=== PATIENT | male | born 1970 | race Two or more races ===

== ENCOUNTER 2024-05-31 10:01 | Inpatient (IN) | payer OTHER ==
[~2024-05-31] VITALS: Ht 175.3 cm; Wt 102.3 kg
[2024-05-31] VITALS (9 sets, daily range): BP systolic 127; BP diastolic 65; PULSE 95–110; RESP 18–36; TEMP 97.8; O2SAT 88–97
[2024-05-31] MEDS ORDERED: VANCOMYCIN PER PHARMACY 0 MG IV SCH (10:30)
[2024-05-31 10:38] LABS: Basophils # (auto) 0.1 10 ^3/uL (0-0.2); Basophils % (auto) 0.8 % (0.0-2.0); Eosinophils # (auto) 0 10 ^3/uL (0-0.8); Eosinophils % (auto) 0.3 % (0.0-7.0); Hematocrit 47.4 % (41.0-53.0); Lymphocytes # (auto) 0.8 10 ^3/uL (0.4-5.4); Lymphocytes % (auto) 7.7 % (10.0-50.0); Mean Corpuscular Hemoglobin 31.5 pg (28.0-32.0); Mean Corpuscular Hgb Conc. 33.6 g/dL (32.0-36.0); Mean Corpuscular Volume 93.7 fL (80.0-100.0); Monocytes # (auto) 1.3 10 ^3/uL (0-1.3); Monocytes % (auto) 12.8 % (0.0-12.0); Neutrophils # (auto) 7.7 10 ^3/uL (1.6-8.6); Neutrophils % (auto) 78.4 % (37.0-80.0); Nucleated Red Blood Cells % 0.2 %; Platelet Count (auto) 158 10^3/uL (140-450); Red Blood Cells 5.06 10^6/uL (4.5-5.90); Red Cell Distribution Width 20.4 % (11.8-14.3); White Blood Cell 9.9 10^3/uL (4.4-10.8)
--- NOTE | 2024-05-31 10:39 | ED.PDOC ---
SOB-HPI HPI Comments 54-year-old male with a history of hypertension and currently under treatment for colorectal cancer brought in by brother for evaluation of shortness a breath for the past week. Patient states his symptoms started about 2 days after returning from a vacation in [facility]. He reports productive cough, lethargy, fatigue. He denies fever, chest pain, nausea, vomiting, diaphoresis or edema. Patient's brother who is a respiratory therapist evaluated him at home, and found him to be hypoxic on room air and to have diminished breath sounds and wheezing. The patient is not on home oxygen. He has no history of lung disease or CHF. He was never a smoker. Chief Complaint: Shortness of Breath Time Seen by MD: 10:14 Reviewed notes: Nurses Notes, Medications, Allergies Information Source: Patient, Relative (Sibling) Mode of Arrival: Ambulatory Severity: Moderate Timing: Days Duration: Since onset, Days Context: At Rest PE Risk Factors: None History of: None Prehospital treatment: None Associated Signs and Symptoms: Cough If cough with SOB: Non-Productive Past Medical History PAST MEDICAL HISTORY: Cancer ([place] rectal cancer), DM, HTN Past Medical History (Other): last chemo as of april Surgical History: Denies all surgeries Family History Family History: Reviewed,noncontributory to illness, Unknown Social History Smoker: Non-Smoker Alcohol: Occasionally Drugs: Denies Drug Use Lives In: Home All Other Systems: Reviewed and Negative (Comprehensive systems review obtained and negative except for what is stated in the HPI.) Physical Exam General Appearance: No Apparent Distress, Obese HEENT: PERRL/EOMI Neck: Full Range of Motion, Normal Inspection Respiratory: Decreased Breath Sounds, No Accessory Muscle Use, Respiratory Distress (Tachypneic), Wheezing Cardiovascular: No Edema, No JVD, Regular Rate/Rhythm Breast Exam: Deferred Gastrointestinal: Non Tender, Soft Genitalia: Deferred Pelvic: Deferred Rectal: Deferred Extremities: No calf tenderness, Normal inspection, Normal range of motion, Non-tender, No pedal edema Neurologic: Alert (Oriented x4), Normal Affect, Normal Mood, Other (Ambulatory. No gross focal deficit.) Cerebellar Function: NOT DONE Reflexes: NOT DONE Skin: Dry, Normal Color, Warm Lymphatic: NOT DONE EKG EKG : Comments Sinus tach, rate 131, normal intervals, normal axis, inferior Q-wave, no ST/T changes. Was a procedure done? Was a procedure done?: No Differential Dx Differential Diagnosis: Asthma, Bronchitis, CHF, COPD, Hyperventilation, Myocardial infarction, Pneumonia, Pneumothorax, Pulmonary Embolism, URI, Other (Sepsis, arrhythmia, among others) X-Ray, Labs, Meds, VS Vital Signs Date Time Temp Pulse Resp B/P (MAP) Pulse Ox O2 Delivery O2 Flow Rate FiO2 05/31/24 12:03 101 46 115/73 (87) 95 05/31/24 11:13 110 20 94 05/31/24 11:07 107 24 92 05/31/24 11:07 92 Nasal Cannula* 5 40 05/31/24 11:07 92 Nasal Cannula 5.0 05/31/24 11:00 110 36 92 Nasal Cannula* 5 40 05/31/24 11:00 110 36 102/67 (79) 92 05/31/24 10:30 121 05/31/24 10:29 98.9 122 27 108/57 (74) 88 98.9 05/31/24 10:13 131 05/31/24 10:10 90 Nasal Cannula* 6 44 05/31/24 10:10 79 Room Air* 0 21 05/31/24 10:06 98.5 138 24 96/63 (74) 79 Lab Test 05/31/24 11:15 05/31/24 10:41 05/31/24 10:20 05/31/24 10:13 Range/Units Sodium Level 133 L 136-145 mmol/L Potassium Level 3.8 3.5-5.1 mmol/L Chloride Level 105 98-107 mmol/L Carbon Dioxide Level 21 20-31 mmol/L Anion Gap 7 5-15 Blood Urea Nitrogen 14 9-23 mg/dL Creatinine 1.02 0.700-1.30 mg/dL Glomerular Filtration Rate Calc 88 >90 mL/min BUN/Creatinine Ratio 13.7 10.0-20.0 Serum Glucose 222 H 74-106 mg/dL Calcium Level 7.8 L 8.7-10.4 mg/dL Troponin I High Sensitivity 8 9 </=54 ng/L Blood Gas Specimen Type Arterial Blood Gas Sample Site Right radial Blood Gas Patient Temperature 37.0 Arterial Blood Date Drawn [id number] Arterial Blood pH 7.436 7.350-7.450 Arterial Blood Partial Pressure CO2 28.5 L 35.0-48.0 mmHg Arterial Blood Partial Pressure O2 54.6 *L 83.0-108.0 mmHg Arterial Blood HCO3 18.7 L 21.0-28.0 mmol/L Arterial Blood Oxygen Saturation 86.8 L 94.0-98.0 % Arterial Blood Base Excess -3.8 L -2.0-3.0 mmol/L Arterial Blood Oxyhemoglobin 85.5 L 94.0-98.0 % Arterial Blood Carboxyhemoglobin 1.0 0.5-1.5 % Arterial Blood Methemoglobin 0.5 0.0-1.5 % Levi Test Yes Blood Gas Total Hemoglobin 16.10 13.5-17.5 g/dL Blood Gas Liter Flow 5.00 Blood Gas Modality Nasal cannula FiO2 % 40.0 Blood Gas Critical Value Read Back Yes Blood Gas Notified Whom sohail Uribe md Blood Gas Notified Time [id number] Blood Gas Notified By White Blood Count 9.9 4.4-10.8 10^3/uL Red Blood Count 5.06 4.5-5.90 10^6/uL Hemoglobin 16.0 13.5-17.5 g/dL Hematocrit 47.4 41.0-53.0 % Mean Corpuscular Volume 93.7 80.0-100.0 fL Mean Corpuscular Hemoglobin 31.5 28.0-32.0 pg Mean Corpuscular Hemoglobin Concent 33.6 32.0-36.0 g/dL Red Cell Distribution Width 20.4 H 11.8-14.3 % Platelet Count 158 140-450 10^3/uL Mean Platelet Volume 8.4 6.9-10.8 fL Neutrophils (%) (Auto) 78.4 37.0-80.0 % Lymphocytes (%) (Auto) 7.7 L 10.0-50.0 % Monocytes (%) (Auto) 12.8 H 0.0-12.0 % Eosinophils (%) (Auto) 0.3 0.0-7.0 % Basophils (%) (Auto) 0.8 0.0-2.0 % Neutrophils # (Auto) 7.7 1.6-8.6 10 ^3/uL Lymphocytes # (Auto) 0.8 0.4-5.4 10 ^3/uL Monocytes # (Auto) 1.3 0-1.3 10 ^3/uL Eosinophils # (Auto) 0 0-0.8 10 ^3/uL Basophils # (Auto) 0.1 0-0.2 10 ^3/uL Nucleated Red Blood Cells 0.2 % Prothrombin Time 13.0 H 9.3-11.8 sec Prothrombin Time INR 1.25 H 0.9-1.15 Activated Partial Thromboplast Time 32.3 24.5-34.5 SEC D-Dimer, Quantitative 1.44 H 0.0-0.49 mg/L FEU Lactic Acid Level 1.9 0.4-2.0 mmol/L B-Type Natriuretic Peptide 3.62 0-100 pg/mL Influenza Type A Antigen Negative Negative Influenza Type B Antigen Negative Negative SARS-CoV-2 Antigen (Rapid) Positive *A NEGATIVE Current Medications Medications (Trade) Dose Ordered Sig/Neil Route Start Time Stop Time Status Last Admin Ipratropium Tobyhanna (Atrovent Medneb) 0.5 mg ONCE ONCE NEB 05/31/24 10:30 05/31/24 10:31 DC 05/31/24 11:07 Piperacillin Sod/ Tazobactam Sod 100 ml @ 100 mls/hr ONCE ONCE IV 05/31/24 10:30 05/31/24 11:29 DC 05/31/24 10:43 Sodium Chloride 3,000 ml @ 1,000 mls/hr Q3H ONCE IV 05/31/24 10:30 05/31/24 13:29 05/31/24 10:45 Sodium Chloride 2,000 ml @ 1,000 mls/hr Q2H ONCE IV 05/31/24 12:00 05/31/24 13:59 05/31/24 12:05 PROCEDURE(s): CXRP - CHEST PORTABLE REASON: sob ORDER NUMBER(s): [id number], ACCESSION NUMBER(s): [id number] EXAM: XY CHEST PORTABLE Indication: sob Technique: Single frontal view of the chest was obtained Comparison: None FINDINGS: Lines and Tubes: Right chest port tip projects over the superior vena cava. Lungs: Diffuse interstitial opacities. Pleura: No effusion. No pneumothorax. Cardiomediastinal contours: Unremarkable Bones: No acute osseous abnormality. IMPRESSION: Diffuse interstitial opacities. X-Ray, Labs, Meds, VS Comment 54-year-old male with a history of hypertension and currently under treatment for colorectal cancer brought in by brother for evaluation of shortness a breath for the past week. Vitals remarkable for oxygen saturation 91% on 6 L nasal cannula, blood pressure Exam remarkable for diminished breath sounds and scattered wheezes, mild tachypnea Rhythm strip independently interpreted by me: Sinus tach, rate 131, no ectopy. Chest x-ray diffuse interstitial opacities CT angio chest pending CBC unremarkable, metabolic panel remarkable for sodium 133, glucose 222, BNP normal, troponin negative, lactic 1.9, D dimer 1.44 influenza negative, COVID positive Patient treated with the following in the ED: 3 L 0.9 normal saline IV bolus, Xopenex 1.25 mg/Atrovent 0.5 mg nebulized, Zosyn 4.5 g IV, vancomycin IV per pharmacy, dexamethasone 10 mg IV On re-evaluation, patient states shortness a breath has improved, he is resting comfortably with stable vitals and oxygen saturation of 93% on nasal cannula oxygen. Plan is to admit the patient for IV antibiotics, remdesivir and respiratory support as needed. Time of 1ST Reevaluation: 10:44 Reevaluation 1ST: Unchanged Patient Education/Counseling: Diagnosis, Treatment, Prognosis Family Education/Counseling: Diagnosis, Treatment, Prognosis Sepsis Sepsis Reasesment Focused Exam Sepsis focused exam: focus exam completed (1232 capillary refill less than 2 seconds, vitals stable) Departure 1 Departure Time of Disposition: 12:32 Impression: Primary Impression: Pneumonia due to COVID-19 virus Additional Impression: Acute respiratory failure Qualified Codes: J96.00 - Acute respiratory failure, unspecified whether with hypoxia or hypercapnia Disposition: ADMITTED INPATIENT Admit to: Tele Condition: Guarded Critical Care Note Critical Care Time?: Yes (45 min-critical care time only) Critical care comment: Critical care time including multiple bedside re-evaluations, review of lab and imaging studies, and discussion of the case with the admitting provider. Patient is high risk for hemodynamic and/or respiratory decompensation. Stability Stability form required: No Heart Score Heart Score: Heart Score Response (Comments) Value History N/A 0 EKG N/A 0 Age N/A 0 Risk Factors N/A 0 Troponin N/A 0 Total 0 I personally scribed for ERICKSON URIBE MD ([email or web address]) on 05/31/24 at 10:43. Electronically submitted by Abraham Kate ([email or web address]). ERICKSON URIBE MD May 31, 2024 10:39
[2024-05-31] MEDS: PIPERACILLIN-TAZO 4.5GM 100 ML IV ONE (10:43)
[2024-05-31] MEDS: SODIUM CHLORIDE 0.9% 3,000 ML IV ONE (10:45)
--- NOTE | 2024-05-31 10:48 | DVH ---
EXAM: XY CHEST PORTABLE Indication: sob Technique: Single frontal view of the chest was obtained Comparison: None FINDINGS: Lines and Tubes: Right chest port tip projects over the superior vena cava. Lungs: Diffuse interstitial opacities. Pleura: No effusion. No pneumothorax. Cardiomediastinal contours: Unremarkable Bones: No acute osseous abnormality. IMPRESSION: Diffuse interstitial opacities.
[2024-05-31 10:57] LABS: INR 1.25 (0.9-1.15); Partial Thromboplastin Time 32.3 SEC (24.5-34.5)
[2024-05-31] MEDS: IPRATROPIUM BROM 0.5 MG/2.5ML INH SOL NEB ONE (11:07)
[2024-05-31 11:20] LABS: COVID19 ANTIGEN SOFIA FIA POSITIVE (NEGATIVE); Rapid Influenza A Negative (Negative); Rapid Influenza B Negative (Negative)
[2024-05-31 11:39] LABS: Base Excess -3.8 mmol/L (-2.0-3.0)
[2024-05-31] MEDS: SODIUM CHLORIDE 0.9% 2,000 ML IV ONE (12:05)
[2024-05-31] MEDS ORDERED: VANCOMYCIN 1GM/250ML KIT 250 ML IV ONE (12:15)
[2024-05-31 12:16] LABS: Calcium 7.8 mg/dL (8.7-10.4); Carbon Dioxide 21 mmol/L (20-31); Glucose 222 mg/dL (74-106)
[2024-05-31 12:18] LABS: BUN/Creatinine Ratio 13.7 (10.0-20.0)
[2024-05-31 12:21] LABS: Anion Gap 7 (5-15); Chloride 105 mmol/L (98-107); Sodium 133 mmol/L (136-145)
[2024-05-31 12:22] LABS: Blood Urea Nitrogen 14 mg/dL (9-23); Potassium 3.8 mmol/L (3.5-5.1)
[2024-05-31] MEDS: LEVALBUTEROL HCL 1.25 MG/3 ML NEB NEB SCH (13:40)
[2024-05-31] MEDS ORDERED: DEXTROSE (50%) 50ML SYRG IV PRN (13:45)
[2024-05-31] MEDS ORDERED: ONDANSETRON HCL 4 MG/2 ML VIAL IV PRN (13:45)
[2024-05-31] MEDS ORDERED: REMDESIVIR PER PHARMACY 0 ML IV SCH (13:45)
[2024-05-31] MEDS ORDERED: HYDROcodone-ACET 5/325MG TAB PO PRN (13:45)
--- NOTE | 2024-05-31 13:58 | DVHHP2 ---
History of Present Illness Reason for Visit: SOB History of Present Illness Jeremy Lin is a 54-year-old male with past medical history of hypertension, diabetes type 2, colorectal cancer on chemo once every 3 weeks last was on 05/23/2024, and colon resection who presents to the ED with shortness of breath with productive tannish cough, lethargy, and fatigue x1 week. Patient reports that he was just in [place] and thinks that he possibly picked something up from there. Patient reports that he does not use home oxygen but currently upon examination he is on 5 L nasal cannula. Patient denies chest pain, abdominal pain, nausea, vomiting, diarrhea, fever, chills, lightheadedness, and dizziness. Cardiovascular: HTN Endocrine: Diabetes Past Medical History Colorectal cancer on chemo Past Surgical History: Other (Colon resection) Family History: Cancer, DM, Hypertension, Other (Mom with hypertension diabetes dad with prostate cancer) Smoke: No ALCOHOL: occassional Lives: with Family Domestic Violence: Neg Review of Systems Constitutional: Yes: Other (Fatigue and lethargy) Respiratory: Cough, Shortness of breath, Sputum Allergies: Coded Allergies: NO KNOWN ALLERGIES (Unverified , 05/31/24) Medications Current Medications Medications Dose Ordered Sig/Neil Route Start Time Stop Time Status Last Admin Dose Admin Levalbuterol HCl 1.25 mg Q6HR NEB 05/31/24 12:00 05/31/24 13:40 1.25 MG Vancomycin HCl 0 ml @ 0 mls/hr UD IV 05/31/24 10:30 Exam Vital Signs Vital Signs Date Time Temp Pulse Resp B/P (MAP) Pulse Ox O2 Delivery O2 Flow Rate FiO2 05/31/24 12:03 101 46 115/73 (87) 95 05/31/24 11:07 Nasal Cannula* 5 40 05/31/24 10:29 98.9 98.9 General Appearance: Alert, Oriented X3, Cooperative, No acute distress HEENT: Atraumatic, PERRLA, EOMI Respiratory: Normal air movement Cardiovascular: Normal S1, Normal S2, No murmurs Abdominal: Soft Neuro: Normal speech, Strength at 5/5 X4 ext, Normal tone, Sensation intact Psych/Mental Status: Mental status NL, Mood NL Labs/Xrays Labs Test 05/31/24 11:15 05/31/24 10:41 05/31/24 10:20 05/31/24 10:13 Range/Units Sodium Level 133 L 136-145 mmol/L Potassium Level 3.8 3.5-5.1 mmol/L Chloride Level 105 98-107 mmol/L Carbon Dioxide Level 21 20-31 mmol/L Anion Gap 7 5-15 Blood Urea Nitrogen 14 9-23 mg/dL Creatinine 1.02 0.700-1.30 mg/dL Glomerular Filtration Rate Calc 88 >90 mL/min BUN/Creatinine Ratio 13.7 10.0-20.0 Serum Glucose 222 H 74-106 mg/dL Calcium Level 7.8 L 8.7-10.4 mg/dL Troponin I High Sensitivity 8 </=54 ng/L Blood Gas Specimen Type Arterial Blood Gas Sample Site Right radial Blood Gas Patient Temperature 37.0 Arterial Blood Date Drawn [id number] Arterial Blood pH 7.436 7.350-7.450 Arterial Blood Partial Pressure CO2 28.5 L 35.0-48.0 mmHg Arterial Blood Partial Pressure O2 54.6 *L 83.0-108.0 mmHg Arterial Blood HCO3 18.7 L 21.0-28.0 mmol/L Arterial Blood Oxygen Saturation 86.8 L 94.0-98.0 % Arterial Blood Base Excess -3.8 L -2.0-3.0 mmol/L Arterial Blood Oxyhemoglobin 85.5 L 94.0-98.0 % Arterial Blood Carboxyhemoglobin 1.0 0.5-1.5 % Arterial Blood Methemoglobin 0.5 0.0-1.5 % Levi Test Yes Blood Gas Total Hemoglobin 16.10 13.5-17.5 g/dL Blood Gas Liter Flow 5.00 Blood Gas Modality Nasal cannula FiO2 % 40.0 Blood Gas Critical Value Read Back Yes Blood Gas Notified Whom sohail Palomares md Blood Gas Notified Time [id number] Blood Gas Notified By White Blood Count 9.9 4.4-10.8 10^3/uL Red Blood Count 5.06 4.5-5.90 10^6/uL Hemoglobin 16.0 13.5-17.5 g/dL Hematocrit 47.4 41.0-53.0 % Mean Corpuscular Volume 93.7 80.0-100.0 fL Mean Corpuscular Hemoglobin 31.5 28.0-32.0 pg Mean Corpuscular Hemoglobin Concent 33.6 32.0-36.0 g/dL Red Cell Distribution Width 20.4 H 11.8-14.3 % Platelet Count 158 140-450 10^3/uL Mean Platelet Volume 8.4 6.9-10.8 fL Neutrophils (%) (Auto) 78.4 37.0-80.0 % Lymphocytes (%) (Auto) 7.7 L 10.0-50.0 % Monocytes (%) (Auto) 12.8 H 0.0-12.0 % Eosinophils (%) (Auto) 0.3 0.0-7.0 % Basophils (%) (Auto) 0.8 0.0-2.0 % Neutrophils # (Auto) 7.7 1.6-8.6 10 ^3/uL Lymphocytes # (Auto) 0.8 0.4-5.4 10 ^3/uL Monocytes # (Auto) 1.3 0-1.3 10 ^3/uL Eosinophils # (Auto) 0 0-0.8 10 ^3/uL Basophils # (Auto) 0.1 0-0.2 10 ^3/uL Nucleated Red Blood Cells 0.2 % Prothrombin Time 13.0 H 9.3-11.8 sec Prothrombin Time INR 1.25 H 0.9-1.15 Activated Partial Thromboplast Time 32.3 24.5-34.5 SEC D-Dimer, Quantitative 1.44 H 0.0-0.49 mg/L FEU Lactic Acid Level 1.9 0.4-2.0 mmol/L B-Type Natriuretic Peptide 3.62 0-100 pg/mL Influenza Type A Antigen Negative Negative Influenza Type B Antigen Negative Negative SARS-CoV-2 Antigen (Rapid) Positive *A NEGATIVE EXAM: XY CHEST PORTABLE Indication: sob Technique: Single frontal view of the chest was obtained Comparison: None FINDINGS: Lines and Tubes: Right chest port tip projects over the superior vena cava. Lungs: Diffuse interstitial opacities. Pleura: No effusion. No pneumothorax. Cardiomediastinal contours: Unremarkable Bones: No acute osseous abnormality. IMPRESSION: Diffuse interstitial opacities. Assessment/Plan Assessment/Plan Assessment COVID positive Acute respiratory failure ?PNA Hyponatremia Diabetes type 2 uncontrolled ETOH abuse History of hypertension History of colorectal cancer on chemo History of colon resection Plan Admit to [facility] Supportive oxygen Remdesivir IV antibiotics-ceftriaxone ABG Chest x-ray Vancomycin and Zosyn started in ED NS 5 L given in ED Xopenex not show Decadron given ED Troponin negative x2 Blood cultures Lactic EKG UA D-dimer PT/PTT BNP Albuterol treatment inhaler IV steroids Diet Antiemetics Pain management Home medications reconciled Discussed plan of care with patient and nurse SCDs Capecitabine and Vectibix chemo med due in 2 weeks Plan discussed with: Patient My Orders Orders - ANN ASCENCIO Procedure Category Date Status Time Remdesivir Per PHA 05/31/24 Verified Pharmacy 13:45 Ceftriaxone Ivpb PHA 06/01/24 Verified Rocephin 09:00 Albuterol Inhaler PHA 05/31/24 Verified (Ventolin Hfa) 14:00 Admit ADMIT 05/31/24 Verified 13:42 Allergies [place] 05/31/24 Verified 13:42 Hydrocodone-Acet PHA 05/31/24 Verified 5/325mg Tab ([place] 13:45 Ondansetron Hcl PHA 05/31/24 Verified (Zofran) 13:45 Complete Blood Count LAB 06/01/24 Verified 04:00 Comprehensive LAB 06/01/24 Verified Metabolic Panel 04:00 Cardiac DIET 05/31/24 Verified Diet-2gna,Lofat,Lochol Dinner Acetaminophen Tablet PHA 05/31/24 Verified (Tylenol Tablet) 13:45 Glucose Blood PHA 05/31/24 Verified (Accu-Chek Comfort 17:00 Mild Sliding Scale PHA 05/31/24 Verified 17:00 Dextrose 50% Syringe PHA 05/31/24 Verified 13:45 Hemoglobin A1c LAB 05/31/24 Verified 13:42 Date of Service: May 31, 2024 Billing Provider: ANN ASCENCIO Common Visit Codes: [id number] INP/OBS CARE (HIGH) ANN ASCENCIO May 31, 2024 13:58
[2024-05-31] MEDS ORDERED: VANCOMYCIN 1GM/250ML KIT 250 ML IV SCH (14:30)
[2024-05-31] MEDS ORDERED: AMLO1TAB23 (15:29)
[2024-05-31] MEDS ORDERED: LISI20TA56 (15:29)
[2024-05-31] MEDS: DexAMETHasone SOD PHOS 10MG/1ML VIAL INJ IV ONE (15:45)
[2024-05-31] MEDS: REMDESIVIR 200mg in NS 210mL LOADING DOSE ADULT IV ONE (15:46)
[2024-05-31] MEDS: ACCU-CHEK COMFORT CURVE STRIP VI SCH (18:15)
[2024-05-31] MEDS: InsuLIN REG 1unit/0.01ml Soln (100units/ml) SC SCH (18:17)
--- NOTE | 2024-05-31 19:12 | DVH ---
EXAM: CT Angiography Chest With Intravenous Contrast CLINICAL INDICATION: sob hypoxia hi dimer r/o PE TECHNIQUE: Axial computed tomographic angiography images of the chest with intravenous contrast. Th is CT exam was performed using one or more of the following dose reduction techniques: automated exp osure control, adjustment of the mA and/or kV according to patient size, and/or use of iterative heriberto nstruction technique. MIP reconstructed images were created and reviewed. CONTRAST: RADIATION DOSE: CTDIvol = 26.68 mGy, DLP = 924.74 mGy-cm COMPARISON: None FINDINGS: PULMONARY ARTERIES: See below. AORTA: Suboptimal exam secondary to phase of scan. Contrast is in the aorta. No large filling defe ct in the main central pulmonary arteries to suggest pulmonary embolus. However, the segmental and s ubsegmental branches evaluation is limited. LUNGS AND PLEURAL SPACES: Scattered ground-glass attenuation partial consolidation of both lungs, l ikely multifocal pneumonia. No significant effusion. HEART: Unremarkable. No cardiomegaly. No significant pericardial effusion. No evidence of RV dys function. BONES/JOINTS: No acute fracture. No dislocation. SOFT TISSUES: Unremarkable. LYMPH NODES: Unremarkable. No enlarged lymph nodes. OTHER FINDINGS: . IMPRESSION: 1. Scattered ground-glass attenuation partial consolidation of both lungs, likely multifocal pneumon ia. 2. Suboptimal exam secondary to phase of scan. Contrast is in the aorta. No large filling defect in the main central pulmonary arteries to suggest pulmonary embolus. However, the segmental and subseg mental branches evaluation is limited.
[2024-05-31] MEDS: ALBUTEROL SULF HFA 90MCG INH 200DOSE IN SCH (19:50)
[2024-05-31] MEDS: VANCOMYCIN 1GM/250ML KIT 250 ML IV SCH (22:15)
[2024-05-31] MEDS: methylPREDNISolone SOD SUCC 40 MG/ML VL IV SCH (22:22)
[2024-06-01] VITALS (13 sets, daily range): BP systolic 101–116; BP diastolic 63–77; PULSE 79–92; RESP 16–21; TEMP 97.1–98; O2SAT 90–96
[2024-06-01] MEDS: ACETAMINOPHEN 325 MG TAB PO PRN (06:45)
[2024-06-01 06:51] LABS: Basophils # (auto) 0 10 ^3/uL (0-0.2); Basophils % (auto) 0.1 % (0.0-2.0); Eosinophils # (auto) 0 10 ^3/uL (0-0.8); Hematocrit 43.4 % (41.0-53.0); Hemoglobin 14.6 g/dL (13.5-17.5); Lymphocytes # (auto) 0.4 10 ^3/uL (0.4-5.4); Mean Corpuscular Hemoglobin 32.2 pg (28.0-32.0); Mean Corpuscular Hgb Conc. 33.6 g/dL (32.0-36.0); Mean Corpuscular Volume 95.6 fL (80.0-100.0); Monocytes # (auto) 0.1 10 ^3/uL (0-1.3); Monocytes % (auto) 2.1 % (0.0-12.0); Neutrophils # (auto) 4.1 10 ^3/uL (1.6-8.6); Neutrophils % (auto) 88.8 % (37.0-80.0); Platelet Count (auto) 140 10^3/uL (140-450); Red Blood Cells 4.54 10^6/uL (4.5-5.90); Red Cell Distribution Width 19.6 % (11.8-14.3); White Blood Cell 4.6 10^3/uL (4.4-10.8)
[2024-06-01 07:18] LABS: Alanine Aminotransferase 30 U/L (7-40); Albumin 3.6 g/dL (3.2-4.8); Anion Gap 10 (5-15); Aspartate Aminotransferase 38 U/L (13-40); Blood Urea Nitrogen 17 mg/dL (9-23); Potassium 4.7 mmol/L (3.5-5.1); Sodium 136 mmol/L (136-145); Total Protein 6.6 g/dL (5.7-8.2)
[2024-06-01 07:19] LABS: Bilirubin, Total 0.7 mg/dL (0.2-1.0)
[2024-06-01 07:29] LABS: Alkaline Phosphatase 117 U/L (46-116); Calcium 8.4 mg/dL (8.7-10.4); Carbon Dioxide 18 mmol/L (20-31); Chloride 108 mmol/L (98-107); Glucose 181 mg/dL (74-106)
[2024-06-01] MEDS: cefTRIAXone 1GM/50ML D5W 50 ML IV SCH (08:43)
[2024-06-01] MEDS: VANCOMYCIN 1.25GM/250ML 250 ML IV SCH (10:32)
[2024-06-01] MEDS: REMDESIVIR 100mg in NS 230mL (3 DAY REGIMEN) IV SCH (15:03)
[2024-06-02] VITALS (11 sets, daily range): BP systolic 101–128; BP diastolic 61–74; PULSE 60–95; RESP 16–20; TEMP 97.4–97.6; O2SAT 91–97
[2024-06-02] MEDS: IOHEXOL 350 MG/ML 100ML IJ ONE (03:13)
--- NOTE | 2024-06-02 04:34 | ECG ---
[facility] Test Date: 2024-05-31 Test Time: 10:13:44 Pat Name: STEPHANIE MOORE Department: er Room: 0201 A Gender: M Bindery Technician: PAL : 1970 Requested By: ERICKSON MEDINA Order Number: [id number] Reading MD: Delonte Vicente Measurements Intervals [place] Rate: 131 P: 70 NV: 133 QRS: 26 QRSD: 101 T: 51 QT: 303 QTc: 448 Interpretive Statements Sinus tachycardia Electronically Signed On 06-05-2024 16:34:14 PDT by Delonte Vicente Please click the below link to view image of tracing.
[2024-06-02 06:05] LABS: Basophils # (auto) 0 10 ^3/uL (0-0.2); Eosinophils # (auto) 0 10 ^3/uL (0-0.8); Hematocrit 42.6 % (41.0-53.0); Hemoglobin 14.5 g/dL (13.5-17.5); Lymphocytes # (auto) 0.4 10 ^3/uL (0.4-5.4); Lymphocytes % (auto) 4.6 % (10.0-50.0); Mean Corpuscular Hemoglobin 32.3 pg (28.0-32.0); Monocytes # (auto) 0.4 10 ^3/uL (0-1.3); Monocytes % (auto) 4.4 % (0.0-12.0); Neutrophils # (auto) 8.9 10 ^3/uL (1.6-8.6); Nucleated Red Blood Cells % 0.1 %; Platelet Count (auto) 169 10^3/uL (140-450); Red Blood Cells 4.48 10^6/uL (4.5-5.90); Red Cell Distribution Width 19.9 % (11.8-14.3); White Blood Cell 9.8 10^3/uL (4.4-10.8)
--- NOTE | 2024-06-02 10:01 | DVHPN2 ---
Progress Note - Dictate Date Seen: Jun 02, 2024 vital signs Vital Sign Date Time Temp Pulse Resp B/P (MAP) Pulse Ox O2 Delivery O2 Flow Rate FiO2 06/02/24 08:46 97.4 91 16 111/62 (78) 92 97.4 06/02/24 08:00 Oxymizer 4 N/A Total Intake and Output 06/01/24 06/01/24 06/02/24 15:00 23:00 07:00 Intake Total 300 ml 650 ml 750 ml Output Total 850 ml 900 ml Balance 300 ml -200 ml -150 ml medications Current Medications Medications Dose Ordered Sig/Neil Route Start Time Stop Time Status Last Admin Dose Admin Vancomycin HCl 0 ml @ 0 mls/hr UD IV 05/31/24 10:30 Remdesivir 0 ml @ 0 mls/hr PER PHARMACY IV 05/31/24 13:45 06/02/24 13:46 Ceftriaxone Sodium 50 ml @ 100 mls/hr DAILY@09 IV 06/01/24 09:00 06/01/24 08:43 100 MLS/HR Albuterol 90 mcg TID IN 05/31/24 14:00 06/02/24 07:23 90 MCG Acetaminophen/ Hydrocodone Bitart 1 tab Q4HP PRN PO 05/31/24 13:45 Ondansetron HCl 4 mg Q4HP PRN IV 05/31/24 13:45 Acetaminophen 650 mg Q6HP PRN PO 05/31/24 13:45 06/01/24 06:45 650 MG Diagnostic Test (Pha) 1 strip ACHS 05/31/24 17:00 06/02/24 06:30 1 STRIP Insulin Human Regular ACHS SC 05/31/24 17:00 06/02/24 06:29 4 UNITS Dextrose 50 ml UD PRN IV 05/31/24 13:45 Remdesivir 100 mg/ Sodium Chloride 250 ml @ 250 mls/hr DAILY@1500 IV 06/01/24 15:00 06/02/24 15:59 06/01/24 15:03 250 MLS/HR Vancomycin HCl 250 ml @ 250 mls/hr Q1H IV 05/31/24 14:30 05/31/24 16:29 Cancel Methylprednisolone Sodium Succinate 40 mg Q8HR IV 05/31/24 22:00 06/02/24 06:29 40 MG Vancomycin HCl 250 ml @ 200 mls/hr Q12H IV 06/01/24 10:00 06/01/24 22:02 200 MLS/HR objective General Appearance: alert, no distress HEENT: EOMI, PERRLA, normal external inspect of ears, no icterus, no nasal drainage Neck: no carotid bruit, no jugular venous distention (JVD), no lymphadenopathy Chest: normal thorax Respiratory: clear to auscultation, normal air movement Cardiovascular: regular rate and rhythm, no diastolic murmur, no jugular venous distention (JVD), no rub, no systolic murmur Abdominal: soft, no hepatomegaly, no mass, no splenomegaly, no tenderness Genitourinary: grossly normal external Musculoskeletal: no joint tenderness, no swelling Extremities: normal pulses, no calf tenderness, no clubbing, no cyanosis, no edema Skin: no bruising, no jaundice, no rash Neurological: alert, No focal deficit laboratory and microbiology Laboratory Tests 06/02/24 05:47 06/01/24 05:55 Test 06/01/24 05:55 Range/Units Serum Glucose 181 H 74-106 mg/dL Problem List 1. COVID positive Monitor , COVID trial medications 2. Acute respiratory failure Monitor, albuterol inhaler 3. PNA Monitor, IV abx 4. Hyponatremia Monitor, daily labs 5. Diabetes type 2 uncontrolled Monitor, insulin ss 6. ETOH abuse Monitor 7. History of hypertension Monitor, medications 8. History of colorectal cancer on chemo Monitor 9. History of colon resection Monitor Plan discussed with: Patient, Other JEFE CHOU NP Jun 02, 2024 10:00
--- NOTE | 2024-06-02 10:01 | DVHPN2 ---
Progress Note - Dictate Date Seen: Jun 02, 2024 Medical Necessity Reason Pt with a Central, PICC or Fol: No vital signs Vital Sign Date Time Temp Pulse Resp B/P (MAP) Pulse Ox O2 Delivery O2 Flow Rate FiO2 06/02/24 08:46 97.4 91 16 111/62 (78) 92 97.4 06/02/24 08:00 Oxymizer 4 N/A Total Intake and Output 06/01/24 06/01/24 06/02/24 15:00 23:00 07:00 Intake Total 300 ml 650 ml 750 ml Output Total 850 ml 900 ml Balance 300 ml -200 ml -150 ml medications Current Medications Medications Dose Ordered Sig/Neil Route Start Time Stop Time Status Last Admin Dose Admin Vancomycin HCl 0 ml @ 0 mls/hr UD IV 05/31/24 10:30 Remdesivir 0 ml @ 0 mls/hr PER PHARMACY IV 05/31/24 13:45 06/02/24 13:46 Ceftriaxone Sodium 50 ml @ 100 mls/hr DAILY@09 IV 06/01/24 09:00 06/01/24 08:43 100 MLS/HR Albuterol 90 mcg TID IN 05/31/24 14:00 06/02/24 07:23 90 MCG Acetaminophen/ Hydrocodone Bitart 1 tab Q4HP PRN PO 05/31/24 13:45 Ondansetron HCl 4 mg Q4HP PRN IV 05/31/24 13:45 Acetaminophen 650 mg Q6HP PRN PO 05/31/24 13:45 06/01/24 06:45 650 MG Diagnostic Test (Pha) 1 strip ACHS 05/31/24 17:00 06/02/24 06:30 1 STRIP Insulin Human Regular ACHS SC 05/31/24 17:00 06/02/24 06:29 4 UNITS Dextrose 50 ml UD PRN IV 05/31/24 13:45 Remdesivir 100 mg/ Sodium Chloride 250 ml @ 250 mls/hr DAILY@1500 IV 06/01/24 15:00 06/02/24 15:59 06/01/24 15:03 250 MLS/HR Vancomycin HCl 250 ml @ 250 mls/hr Q1H IV 05/31/24 14:30 05/31/24 16:29 Cancel Methylprednisolone Sodium Succinate 40 mg Q8HR IV 05/31/24 22:00 06/02/24 06:29 40 MG Vancomycin HCl 250 ml @ 200 mls/hr Q12H IV 06/01/24 10:00 06/01/24 22:02 200 MLS/HR objective General Appearance: alert, no distress HEENT: EOMI, PERRLA, normal external inspect of ears, no icterus, no nasal drainage Neck: no carotid bruit, no jugular venous distention (JVD), no lymphadenopathy Chest: normal thorax Respiratory: clear to auscultation, normal air movement Cardiovascular: regular rate and rhythm, no diastolic murmur, no jugular venous distention (JVD), no rub, no systolic murmur Abdominal: soft, no hepatomegaly, no mass, no splenomegaly, no tenderness Genitourinary: grossly normal external Musculoskeletal: no joint tenderness, no swelling Extremities: normal pulses, no calf tenderness, no clubbing, no cyanosis, no edema Skin: no bruising, no jaundice, no rash Neurological: alert, No focal deficit laboratory and microbiology Laboratory Tests 06/02/24 05:47 06/01/24 05:55 Test 06/01/24 05:55 Range/Units Serum Glucose 181 H 74-106 mg/dL Problem List 1. COVID positive Monitor 2. Acute respiratory failure Monitor 3. ?PNA Monitor 4. Hyponatremia Monitor 5. Diabetes type 2 uncontrolled Monitor 6. ETOH abuse Monitor 7. History of hypertension Monitor 8. History of colorectal cancer on chemo Monitor 9. History of colon resection Monitor Assessment/Plan Subjective: Patient is awake and alert. Objective: Patient has Covid pneumonia. Currently on four liters oxymizer. Patient is still having some coughs and is short of breath. Patient was admitted for acute hypoxic respiratory failure and Covid pneumonia. Patient was started on remdesivir and IV antibiotics for a possible secondary bacterial infection. Plan: Continue albuterol inhaler for shortness of breath. Continue antivirals and antibiotics. Start Covid trial medications and vitamins. Monitor daily labs and renal function. Plan discussed with: Patient, Other JEFE CHOU NP Jun 02, 2024 10:01
[2024-06-02] MEDS: ZINC SULFATE 220mg CAP or TAB PO SCH (11:03)
[2024-06-02] MEDS: CHOLECALCIFEROL (VITD3) 1,000UNIT=25mCg TAB PO SCH (11:03)
[2024-06-02] MEDS: FAMOTIDINE (10MG/ML) 2ML VL IV SCH (11:03)
[2024-06-02] MEDS: ASCORBIC ACID 500 MG TAB PO SCH (11:03)
[2024-06-02] MEDS: INSULIN LANTUS (GLARGINE) 1 /0.01ml (100units/ml) SC SCH (11:12)
[2024-06-02] MEDS: InsuLIN REG 1unit/0.01ml Soln (100units/ml) SC SCH ×2 (11:12→22:17)
--- NOTE | 2024-06-02 12:25 | DVHINCON2 ---
Date of service: Jun 01, 2024 Referring Physician Johan DANIELSON Reason for Consultation Acute hypoxic respiratory failure, COVID-19 History of Present Illness A 54-year-old man with past medical history of hypertension, diabetes type 2, and colorectal cancer, on chemo once every 3 weeks (last on 05/23/2024) s/p colon resection, who presented to ED on 05/31/24 with c/o shortness of breath with productive tannish cough, lethargy, and fatigue x1 week. Patient reported that he was just in [place] and possibly picked something up from there. Patient reported his brother who is a respiratory therapist evaluated him at home and found him to be hypoxic on room air and to have diminished breath sounds and wheezing. Patient is not on home oxygen. He denied chest pain, abdominal pain, N/V/D, or other acute complaints. Patient was admitted for further care and pulmonary consultation is requested for evaluation and management of acute hypoxic respiratory failure and COVID-19. Review of Systems: 14-point review of systems negative unless otherwise noted above. Past Medical History: Hypertension, diabetes type 2, and colorectal cancer, on chemo once every 3 weeks (last on 05/23/2024) s/p colon resection Past Surgical History: Colon resection Medications: Reviewed. Allergies: No known drug allergies. Family History: DM, hypertension, [place], renal failure, colorectal cancer, prostate cancer Social History: Nonsmoker. Occasional alcohol use. No illicit drug use. Family History: Colorectal cancer G8 MOTHER Diabetes mellitus G8 MOTHER FH: heart attack G8 MOTHER FH: renal failure G8 FATHER Hypertension G8 MOTHER G8 FATHER Allergies: Coded Allergies: NO KNOWN ALLERGIES (Unverified , 05/31/24) Home Meds Reported Medications Lisinopril (Lisinopril) 20 Mg Tab, 1 DAILY 05/31/24 Amlodipine Besylate (Amlodipine Besylate) 10 Mg Tab, 1 DAILY 05/31/24 Current Medications Current Medications Medications (Trade) Dose Ordered Sig/Neil Route PRN Reason Start Time Stop Time Status Last Admin Remdesivir 100 mg/ Sodium Chloride 250 ml @ 250 mls/hr DAILY@1500 IV 06/01/24 15:00 06/02/24 15:59 06/01/24 15:03 Ascorbic Acid (Vitamin C Tablet) 500 mg DAILY PO 06/02/24 10:15 06/02/24 11:03 Zinc Sulfate 220 mg DAILY PO 06/02/24 10:15 06/02/24 11:03 Famotidine (Pepcid Injection) 20 mg DAILY IV 06/02/24 10:15 06/02/24 11:03 Cholecalciferol (Vitamin D3 Tablet) 1,000 unit DAILY PO 06/02/24 10:15 06/02/24 11:03 Insulin Human Regular (InsuLIN R) HS SC 06/02/24 22:00 Insulin Human Regular (InsuLIN R) AC SC 06/02/24 11:30 06/02/24 11:12 Insulin Glargine (Lantus) 10 units DAILY@1000 SC 06/02/24 10:00 06/02/24 11:12 Vital Signs Vital Signs Date Time Temp Pulse Resp B/P (MAP) Pulse Ox O2 Delivery O2 Flow Rate FiO2 06/02/24 10:04 94 Oxymizer 4 N/A 06/02/24 08:46 97.4 91 16 111/62 (78) 97.4 Physical Exam Gen.: Patient lying in bed in no apparent distress. On supplemental oxygen. Head: Normocephalic, atraumatic. Eyes: EOMI/PERRLA. Ears: Normal hearing. Normal anatomy. Neck/trachea: Trachea midline, supple. Nose: Normal external anatomy. Mouth: Moist mucous membranes. Chest: Decreased air entry bilaterally. No wheezing or rhonchi. Cardiovascular: Positive S1, positive S2. Regular rate and rhythm. Abdomen: Positive bowel sounds in all 4 quadrants. Soft, non-tender, non-distend ed. : Deferred. Rectal: Deferred. Skin: Warm, dry. Intact. Extremities: 2+ radial pulses bilaterally. No lower extremity edema. Neuro: Awake, alert, oriented x3. No gross motor or sensory deficits. Cranial nerves II through XII intact. Gait not assessed. Labs/Diagnostic Data Labs Test 06/02/24 10:46 06/02/24 05:47 06/01/24 05:55 05/31/24 11:15 Range/Units POC Glucose 249 H 70-106 mg/dl White Blood Count 9.8 # 4.4-10.8 10^3/uL Red Blood Count 4.48 L 4.5-5.90 10^6/uL Hemoglobin 14.5 13.5-17.5 g/dL Hematocrit 42.6 41.0-53.0 % Mean Corpuscular Volume 95.0 80.0-100.0 fL Mean Corpuscular Hemoglobin 32.3 H 28.0-32.0 pg Mean Corpuscular Hemoglobin Concent 34.0 32.0-36.0 g/dL Red Cell Distribution Width 19.9 H 11.8-14.3 % Platelet Count 169 140-450 10^3/uL Mean Platelet Volume 8.0 6.9-10.8 fL Neutrophils (%) (Auto) 91.0 H 37.0-80.0 % Lymphocytes (%) (Auto) 4.6 L 10.0-50.0 % Monocytes (%) (Auto) 4.4 0.0-12.0 % Eosinophils (%) (Auto) 0.0 0.0-7.0 % Basophils (%) (Auto) 0.0 0.0-2.0 % Neutrophils # (Auto) 8.9 H 1.6-8.6 10 ^3/uL Lymphocytes # (Auto) 0.4 0.4-5.4 10 ^3/uL Monocytes # (Auto) 0.4 0-1.3 10 ^3/uL Eosinophils # (Auto) 0 0-0.8 10 ^3/uL Basophils # (Auto) 0 0-0.2 10 ^3/uL Nucleated Red Blood Cells 0.1 % Creatinine 0.79 0.700-1.30 mg/dL Glomerular Filtration Rate Calc 106 >90 mL/min Sodium Level 136 136-145 mmol/L Potassium Level 4.7 3.5-5.1 mmol/L Chloride Level 108 H 98-107 mmol/L Carbon Dioxide Level 18 L 20-31 mmol/L Anion Gap 10 5-15 Blood Urea Nitrogen 17 9-23 mg/dL BUN/Creatinine Ratio 20.0 10.0-20.0 Serum Glucose 181 H 74-106 mg/dL Calcium Level 8.4 L 8.7-10.4 mg/dL Total Bilirubin 0.7 0.2-1.0 mg/dL Aspartate Amino Transferase (AST) 38 13-40 U/L Alanine Aminotransferase (ALT) 30 7-40 U/L Alkaline Phosphatase 117 H 46-116 U/L Total Protein 6.6 5.7-8.2 g/dL Albumin 3.6 3.2-4.8 g/dL Troponin I High Sensitivity 8 </=54 ng/L Test 05/31/24 10:41 05/31/24 10:20 05/31/24 10:13 Range/Units Blood Gas Specimen Type Arterial Blood Gas Sample Site Right radial Blood Gas Patient Temperature 37.0 Arterial Blood Date Drawn [id number] Arterial Blood pH 7.436 7.350-7.450 Arterial Blood Partial Pressure CO2 28.5 L 35.0-48.0 mmHg Arterial Blood Partial Pressure O2 54.6 *L 83.0-108.0 mmHg Arterial Blood HCO3 18.7 L 21.0-28.0 mmol/L Arterial Blood Oxygen Saturation 86.8 L 94.0-98.0 % Arterial Blood Base Excess -3.8 L -2.0-3.0 mmol/L Arterial Blood Oxyhemoglobin 85.5 L 94.0-98.0 % Arterial Blood Carboxyhemoglobin 1.0 0.5-1.5 % Arterial Blood Methemoglobin 0.5 0.0-1.5 % Levi Test Yes Blood Gas Total Hemoglobin 16.10 13.5-17.5 g/dL Blood Gas Liter Flow 5.00 Blood Gas Modality Nasal cannula FiO2 % 40.0 Blood Gas Critical Value Read Back Yes Blood Gas Notified Whom sohail Palomares md Blood Gas Notified Time [id number] Blood Gas Notified By Prothrombin Time 13.0 H 9.3-11.8 sec Prothrombin Time INR 1.25 H 0.9-1.15 Activated Partial Thromboplast Time 32.3 24.5-34.5 SEC D-Dimer, Quantitative 1.44 H 0.0-0.49 mg/L FEU Hemoglobin A1c 9.2 H <5.7 % A1C Lactic Acid Level 1.9 0.4-2.0 mmol/L B-Type Natriuretic Peptide 3.62 0-100 pg/mL Influenza Type A Antigen Negative Negative Influenza Type B Antigen Negative Negative SARS-CoV-2 Antigen (Rapid) Positive *A NEGATIVE Microbiology Date/Time Source Procedure Growth Status 05/31/24 10:20 Blood Blood Culture - Preliminary NO GROWTH AFTER 48 HOURS OF INCUBATION. Resulted Assessment Impression: Acute hypoxic respiratory failure Dependence on supplemental oxygen COVID-19 Hyperglycemia Colorectal cancer, on chemotherapy Obesity Plan: Supplemental oxygen 5 LPM NC Titrate to keep O2 sats above 92%. Taper O2 as tolerated. CT angio reveals scattered ground-glass attenuation, partial consolidation of both lungs, likely multifocal pneumonia. Continue bronchodilators Continue antibiotics Continue IV steroids Decadron Remdesivir course Monitor renal function. Monitor electrolytes. Supplement as necessary. Monitor ins and outs. Diet and lifestyle modifications for weight reduction Obesity complicates all care DVT prophylaxis. Prognosis: Poor given patient's multiple co-morbidities. Rest of plan per hospitalist and other consultants. Thank you, JAGJIT Prado, for allowing me to participate in this patient's care. Further recommendations will depend on the patient's clinical course. Please do not hesitate to contact me if you have any questions or concerns. This medical document was created using an electronic medical record system with [employer] computerized dictation system. Although these documentations are being c arefully reviewed, there may still be some phonetic and typographical changes. The errors are purely typographical, due to imperfection on the software program, and do not reflect any compromise in the patient's medical care. Plan discussed with: Patient, Other (MELVA Andrade/JAGJIT Prado/) RAGHAV LECHUGA MD Jun 02, 2024 12:25
--- NOTE | 2024-06-02 19:07 | DVHPN2 ---
Progress Note - Dictate Date Seen: Jun 02, 2024 Medical Necessity Reason Pt with a Central, PICC or Fol: No Subjective Patient seen and examined at bedside. Remains on supplemental oxygen Overnight events reviewed. vital signs Vital Sign Date Time Temp Pulse Resp B/P (MAP) Pulse Ox O2 Delivery O2 Flow Rate FiO2 06/02/24 18:10 69 16 92 06/02/24 18:10 Oxymizer 4.0 06/02/24 18:10 N/A 06/02/24 17:05 97.5 124/68 (86) 97.5 Total Intake and Output 06/01/24 06/01/24 06/02/24 15:00 23:00 07:00 Intake Total 300 ml 650 ml 750 ml Output Total 850 ml 900 ml Balance 300 ml -200 ml -150 ml medications Current Medications Medications Dose Ordered Sig/Neil Route Start Time Stop Time Status Last Admin Dose Admin Vancomycin HCl 0 ml @ 0 mls/hr UD IV 05/31/24 10:30 Ceftriaxone Sodium 50 ml @ 100 mls/hr DAILY@09 IV 06/01/24 09:00 06/02/24 10:06 100 MLS/HR Albuterol 90 mcg TID IN 05/31/24 14:00 06/02/24 18:22 90 MCG Acetaminophen/ Hydrocodone Bitart 1 tab Q4HP PRN PO 05/31/24 13:45 Ondansetron HCl 4 mg Q4HP PRN IV 05/31/24 13:45 Acetaminophen 650 mg Q6HP PRN PO 05/31/24 13:45 06/01/24 06:45 650 MG Diagnostic Test (Pha) 1 strip ACHS 05/31/24 17:00 06/02/24 16:49 1 STRIP Dextrose 50 ml UD PRN IV 05/31/24 13:45 Vancomycin HCl 250 ml @ 250 mls/hr Q1H IV 05/31/24 14:30 05/31/24 16:29 Cancel Methylprednisolone Sodium Succinate 40 mg Q8HR IV 05/31/24 22:00 06/02/24 16:39 40 MG Vancomycin HCl 250 ml @ 200 mls/hr Q12H IV 06/01/24 10:00 06/02/24 10:43 200 MLS/HR Ascorbic Acid 500 mg DAILY PO 06/02/24 10:15 06/02/24 11:03 500 MG Zinc Sulfate 220 mg DAILY PO 06/02/24 10:15 06/02/24 11:03 220 MG Famotidine 20 mg DAILY IV 06/02/24 10:15 06/02/24 11:03 20 MG Cholecalciferol 1,000 unit DAILY PO 06/02/24 10:15 06/02/24 11:03 1,000 UNIT Insulin Human Regular HS SC 06/02/24 22:00 Insulin Human Regular AC SC 06/02/24 11:30 06/02/24 16:51 9 UNITS Insulin Glargine 10 units DAILY@1000 SC 06/02/24 10:00 06/02/24 11:12 10 UNITS objective Gen.: Patient lying in bed in no apparent distress. On supplemental oxygen. Head: Normocephalic, atraumatic. Eyes: EOMI/PERRLA. Ears: Normal hearing. Normal anatomy. Neck/trachea: Trachea midline, supple. Nose: Normal external anatomy. Mouth: Moist mucous membranes. Chest: Decreased air entry bilaterally. No wheezing or rhonchi. Cardiovascular: Positive S1, positive S2. Regular rate and rhythm. Abdomen: Positive bowel sounds in all 4 quadrants. Soft, non-tender, non- distended. : Deferred. Rectal: Deferred. Skin: Warm, dry. Intact. Extremities: 2+ radial pulses bilaterally. No lower extremity edema. Neuro: Awake, alert, oriented x3. No gross motor or sensory deficits. Cranial nerves II through XII intact. Gait not assessed. laboratory and microbiology Laboratory Tests 06/02/24 05:47 06/01/24 05:55 Test 06/01/24 05:55 Range/Units Serum Glucose 181 H 74-106 mg/dL Assessment/Plan Impression: Acute hypoxic respiratory failure Dependence on supplemental oxygen COVID-19 Hyperglycemia Colorectal cancer, on chemotherapy Obesity Events: Remains on supplemental oxygen, 4 LPM Oxymizer Taper O2 as tolerated Continue Remdesivir course Continue bronchodilators Continue IV steroids Continue antibiotics Vitamin supplementation Incentive spirometry Accu-Cheks, ISS Labs and imaging reviewed. Rest of plan as noted below. Plan: Supplemental oxygen Titrate to keep O2 sats above 92%. Continue bronchodilators Continue antibiotics Continue IV steroids Decadron Remdesivir course Monitor renal function. Monitor electrolytes. Supplement as necessary. Monitor ins and outs. Diet and lifestyle modifications for weight reduction Obesity complicates all care DVT prophylaxis. Prognosis: Guarded given patient's multiple co-morbidities. Rest of plan per hospitalist and other consultants. Thank you, JAGJIT Prado, for allowing me to participate in this patient's care. Further recommendations will depend on the patient's clinical course. Please do not hesitate to contact me if you have any questions or concerns. This medical document was created using an electronic medical record system with [employer] dictation system. Although these documentations are being carefully reviewed, there may still be some phonetic and typographical changes. The errors are purely typographical, due to imperfection on the software program, and do not reflect any compromise in the patient's medical care. Plan discussed with: Patient, Other (MELVA Andrade) RAGHAV LECHUGA MD Jun 02, 2024 19:07
[2024-06-03] VITALS (15 sets, daily range): BP systolic 108–123; BP diastolic 63–78; PULSE 65–91; RESP 14–20; TEMP 97.5–98.6; O2SAT 90–95
[2024-06-03 06:30] LABS: Basophils # (auto) 0 10 ^3/uL (0-0.2); Eosinophils # (auto) 0 10 ^3/uL (0-0.8); Hematocrit 41.1 % (41.0-53.0); Hemoglobin 14.2 g/dL (13.5-17.5); Lymphocytes # (auto) 0.4 10 ^3/uL (0.4-5.4); Lymphocytes % (auto) 3.5 % (10.0-50.0); Mean Corpuscular Hemoglobin 32.5 pg (28.0-32.0); Mean Corpuscular Hgb Conc. 34.5 g/dL (32.0-36.0); Mean Corpuscular Volume 94.1 fL (80.0-100.0); Monocytes # (auto) 0.3 10 ^3/uL (0-1.3); Monocytes % (auto) 2.5 % (0.0-12.0); Neutrophils # (auto) 10.3 10 ^3/uL (1.6-8.6); Nucleated Red Blood Cells % 0.1 %; Platelet Count (auto) 174 10^3/uL (140-450); Red Blood Cells 4.37 10^6/uL (4.5-5.90); Red Cell Distribution Width 19.6 % (11.8-14.3)
--- NOTE | 2024-06-03 11:35 | DVHPN2 ---
Progress Note - Dictate Date Seen: Jun 03, 2024 Medical Necessity Reason Pt with a Central, PICC or Fol: No vital signs Vital Sign Date Time Temp Pulse Resp B/P (MAP) Pulse Ox O2 Delivery O2 Flow Rate FiO2 06/03/24 10:10 84 16 108/67 94 0.0 21 06/03/24 08:43 97.8 97.8 06/03/24 06:06 Oxymizer Total Intake and Output 06/02/24 06/02/24 06/03/24 15:00 23:00 07:00 Intake Total 800 ml 800 ml 850 ml Output Total 1900 ml Balance 800 ml 800 ml -1050 ml medications Current Medications Medications Dose Ordered Sig/Neil Route Start Time Stop Time Status Last Admin Dose Admin Vancomycin HCl 0 ml @ 0 mls/hr UD IV 05/31/24 10:30 Ceftriaxone Sodium 50 ml @ 100 mls/hr DAILY@09 IV 06/01/24 09:00 06/03/24 10:37 100 MLS/HR Albuterol 90 mcg TID IN 05/31/24 14:00 06/03/24 06:03 90 MCG Acetaminophen/ Hydrocodone Bitart 1 tab Q4HP PRN PO 05/31/24 13:45 Ondansetron HCl 4 mg Q4HP PRN IV 05/31/24 13:45 Acetaminophen 650 mg Q6HP PRN PO 05/31/24 13:45 06/01/24 06:45 650 MG Diagnostic Test (Pha) 1 strip ACHS 05/31/24 17:00 06/03/24 06:30 1 STRIP Dextrose 50 ml UD PRN IV 05/31/24 13:45 Vancomycin HCl 250 ml @ 250 mls/hr Q1H IV 05/31/24 14:30 05/31/24 16:29 Cancel Methylprednisolone Sodium Succinate 40 mg Q8HR IV 05/31/24 22:00 06/03/24 06:30 40 MG Vancomycin HCl 250 ml @ 200 mls/hr Q12H IV 06/01/24 10:00 06/02/24 22:57 200 MLS/HR Ascorbic Acid 500 mg DAILY PO 06/02/24 10:15 06/03/24 10:38 500 MG Zinc Sulfate 220 mg DAILY PO 06/02/24 10:15 06/03/24 10:38 220 MG Famotidine 20 mg DAILY IV 06/02/24 10:15 06/03/24 10:37 20 MG Cholecalciferol 1,000 unit DAILY PO 06/02/24 10:15 06/03/24 10:38 1,000 UNIT Insulin Human Regular HS SC 06/02/24 22:00 06/02/24 22:17 6 UNITS Insulin Human Regular AC SC 06/02/24 11:30 06/03/24 06:31 3 UNITS Insulin Glargine 10 units DAILY@1000 SC 06/02/24 10:00 06/02/24 11:12 10 UNITS objective General Appearance: alert, no distress HEENT: EOMI, PERRLA, normal external inspect of ears, no icterus, no nasal drainage Neck: no carotid bruit, no jugular venous distention (JVD), no lymphadenopathy Chest: normal thorax Respiratory: clear to auscultation, normal air movement Cardiovascular: regular rate and rhythm, no diastolic murmur, no jugular venous distention (JVD), no rub, no systolic murmur Abdominal: soft, no hepatomegaly, no mass, no splenomegaly, no tenderness Genitourinary: grossly normal external Musculoskeletal: no joint tenderness, no swelling Extremities: normal pulses, no calf tenderness, no clubbing, no cyanosis, no edema Skin: no bruising, no jaundice, no rash Neurological: alert, No focal deficit laboratory and microbiology Laboratory Tests 06/03/24 05:04 06/01/24 05:55 Test 06/01/24 05:55 Range/Units Serum Glucose 181 H 74-106 mg/dL Problem List 1. COVID positive Monitor , COVID trial medications 2. Acute respiratory failure Monitor, albuterol inhaler 3. PNA Monitor, IV abx 4. Hyponatremia Monitor, daily labs 5. Diabetes type 2 uncontrolled Monitor, insulin ss 6. ETOH abuse Monitor 7. History of hypertension Monitor, medications 8. History of colorectal cancer on chemo Monitor 9. History of colon resection Monitor Assessment/Plan Subjective: Patient is awake and alert. Objective: Patient remains on 4 L Oxymizer. Patient was admitted for acute hypoxic respiratory failure related to COVID-pneumonia. Patient is being treated for possible secondary bacterial pneumonia. Patient is also on remdesivir. Plan: Continue COVID trial medications. Continue antibiotics. Continue Rocephin. Stop vancomycin. Repeat labs ordered. Wean down supplemental O2 as tolerated. Plan discussed with: Patient, Other JEFE CHOU NP Jun 03, 2024 11:35
--- NOTE | 2024-06-03 23:32 | DVHPN2 ---
Progress Note - Dictate Date Seen: Jun 03, 2024 Medical Necessity Reason Pt with a Central, PICC or Fol: No Subjective Patient seen and examined at bedside. Remains on supplemental oxygen Overnight events reviewed. vital signs Vital Sign Date Time Temp Pulse Resp B/P (MAP) Pulse Ox O2 Delivery O2 Flow Rate FiO2 06/03/24 22:07 94 Oxymizer 3.0 06/03/24 22:07 N/A 06/03/24 22:07 91 18 06/03/24 21:00 97.5 117/73 (88) 97.5 Total Intake and Output 06/02/24 06/02/24 06/03/24 15:00 23:00 07:00 Intake Total 800 ml 800 ml 850 ml Output Total 1900 ml Balance 800 ml 800 ml -1050 ml medications Current Medications Medications Dose Ordered Sig/Neil Route Start Time Stop Time Status Last Admin Dose Admin Ceftriaxone Sodium 50 ml @ 100 mls/hr DAILY@09 IV 06/01/24 09:00 06/03/24 10:37 100 MLS/HR Albuterol 90 mcg TID IN 05/31/24 14:00 06/03/24 22:07 90 MCG Acetaminophen/ Hydrocodone Bitart 1 tab Q4HP PRN PO 05/31/24 13:45 Ondansetron HCl 4 mg Q4HP PRN IV 05/31/24 13:45 Acetaminophen 650 mg Q6HP PRN PO 05/31/24 13:45 06/01/24 06:45 650 MG Diagnostic Test (Pha) 1 strip ACHS 05/31/24 17:00 06/03/24 22:26 1 STRIP Dextrose 50 ml UD PRN IV 05/31/24 13:45 Vancomycin HCl 250 ml @ 250 mls/hr Q1H IV 05/31/24 14:30 05/31/24 16:29 Cancel Methylprednisolone Sodium Succinate 40 mg Q8HR IV 05/31/24 22:00 06/03/24 22:26 40 MG Ascorbic Acid 500 mg DAILY PO 06/02/24 10:15 06/03/24 10:38 500 MG Zinc Sulfate 220 mg DAILY PO 06/02/24 10:15 06/03/24 10:38 220 MG Famotidine 20 mg DAILY IV 06/02/24 10:15 06/03/24 10:37 20 MG Cholecalciferol 1,000 unit DAILY PO 06/02/24 10:15 06/03/24 10:38 1,000 UNIT Insulin Human Regular HS SC 06/02/24 22:00 06/03/24 22:36 4 UNITS Insulin Human Regular AC SC 06/02/24 11:30 06/03/24 18:02 6 UNITS Insulin Glargine 10 units DAILY@1000 SC 06/02/24 10:00 06/03/24 12:16 10 UNITS objective Gen.: Patient lying in bed in no apparent distress. On supplemental oxygen. Head: Normocephalic, atraumatic. Eyes: EOMI/PERRLA. Ears: Normal hearing. Normal anatomy. Neck/trachea: Trachea midline, supple. Nose: Normal external anatomy. Mouth: Moist mucous membranes. Chest: Decreased air entry bilaterally. No wheezing or rhonchi. Cardiovascular: Positive S1, positive S2. Regular rate and rhythm. Abdomen: Positive bowel sounds in all 4 quadrants. Soft, non-tender, non- distended. : Deferred. Rectal: Deferred. Skin: Warm, dry. Intact. Extremities: 2+ radial pulses bilaterally. No lower extremity edema. Neuro: Awake, alert, oriented x3. No gross motor or sensory deficits. Cranial nerves II through XII intact. Gait not assessed. laboratory and microbiology Laboratory Tests 06/03/24 05:04 06/01/24 05:55 Test 06/01/24 05:55 Range/Units Serum Glucose 181 H 74-106 mg/dL Assessment/Plan Impression: Acute hypoxic respiratory failure Dependence on supplemental oxygen COVID-19 Hyperglycemia Colorectal cancer, on chemotherapy Obesity Events: Remains on supplemental oxygen, on 3 LPM Oxymizer Taper O2 as tolerated Continue bronchodilators Continue steroids Continue antibiotics Remdesivir course. Incentive spirometry Labs and imaging reviewed. Rest of plan as noted below. Plan: Supplemental oxygen Titrate to keep O2 sats above 92%. CT angio reveals scattered ground-glass attenuation, partial consolidation of both lungs, likely multifocal pneumonia. Continue bronchodilators Continue antibiotics Continue IV steroids Remdesivir course Monitor renal function. Monitor electrolytes. Supplement as necessary. Monitor ins and outs. Diet and lifestyle modifications for weight reduction Obesity complicates all care DVT prophylaxis. Prognosis: Guarded given patient's multiple co-morbidities. Rest of plan per hospitalist and other consultants. Thank you, JAGJIT Prado, for allowing me to participate in this patient's care. Further recommendations will depend on the patient's clinical course. Please do not hesitate to contact me if you have any questions or concerns. This medical document was created using an electronic medical record system with [employer] dictation system. Although these documentations are being carefully reviewed, there may still be some phonetic and typographical changes. The errors are purely typographical, due to imperfection on the software program, and do not reflect any compromise in the patient's medical care. Dietary Evaluation Review Comments: Encoruage and monitor PO intake to meet 75% of his needs. Offer Glucerna BID as tolerated Expected Outcomes/Goals: Gradual wt loss, controlled DM Plan discussed with: Patient, Other (MELVA Cristobalo) RAGHAV LECHUGA MD Jun 03, 2024 23:32
[2024-06-04] VITALS (15 sets, daily range): BP systolic 121–131; BP diastolic 71–84; PULSE 54–68; RESP 18–36; TEMP 97.5–97.7; O2SAT 90–97
--- NOTE | 2024-06-04 09:03 | DVHPN2 ---
Progress Note - Dictate Date Seen: Jun 04, 2024 Medical Necessity Reason Pt with a Central, PICC or Fol: No vital signs Vital Sign Date Time Temp Pulse Resp B/P (MAP) Pulse Ox O2 Delivery O2 Flow Rate FiO2 06/04/24 06:46 60 18 95 06/04/24 06:46 Oxymizer 4 N/A 06/04/24 05:00 97.7 125/75 (92) 97.7 Total Intake and Output 06/03/24 06/03/24 06/04/24 15:00 23:00 07:00 Intake Total 300 ml 1200 ml 400 ml Output Total 590 ml 600 ml Balance 300 ml 610 ml -200 ml medications Current Medications Medications Dose Ordered Sig/Neil Route Start Time Stop Time Status Last Admin Dose Admin Ceftriaxone Sodium 50 ml @ 100 mls/hr DAILY@09 IV 06/01/24 09:00 06/03/24 10:37 100 MLS/HR Albuterol 90 mcg TID IN 05/31/24 14:00 06/04/24 06:43 90 MCG Acetaminophen/ Hydrocodone Bitart 1 tab Q4HP PRN PO 05/31/24 13:45 Ondansetron HCl 4 mg Q4HP PRN IV 05/31/24 13:45 Acetaminophen 650 mg Q6HP PRN PO 05/31/24 13:45 06/01/24 06:45 650 MG Diagnostic Test (Pha) 1 strip ACHS 05/31/24 17:00 06/04/24 06:30 1 STRIP Dextrose 50 ml UD PRN IV 05/31/24 13:45 Vancomycin HCl 250 ml @ 250 mls/hr Q1H IV 05/31/24 14:30 05/31/24 16:29 Cancel Methylprednisolone Sodium Succinate 40 mg Q8HR IV 05/31/24 22:00 06/04/24 06:30 40 MG Ascorbic Acid 500 mg DAILY PO 06/02/24 10:15 06/03/24 10:38 500 MG Zinc Sulfate 220 mg DAILY PO 06/02/24 10:15 06/03/24 10:38 220 MG Famotidine 20 mg DAILY IV 06/02/24 10:15 06/03/24 10:37 20 MG Cholecalciferol 1,000 unit DAILY PO 06/02/24 10:15 06/03/24 10:38 1,000 UNIT Insulin Human Regular HS SC 06/02/24 22:00 06/03/24 22:36 4 UNITS Insulin Human Regular AC SC 06/02/24 11:30 06/04/24 06:31 3 UNITS Insulin Glargine 10 units DAILY@1000 SC 06/02/24 10:00 06/03/24 12:16 10 UNITS objective General Appearance: alert, no distress HEENT: EOMI, PERRLA, normal external inspect of ears, no icterus, no nasal drainage Neck: no carotid bruit, no jugular venous distention (JVD), no lymphadenopathy Chest: normal thorax Respiratory: clear to auscultation, normal air movement Cardiovascular: regular rate and rhythm, no diastolic murmur, no jugular venous distention (JVD), no rub, no systolic murmur Abdominal: soft, no hepatomegaly, no mass, no splenomegaly, no tenderness Genitourinary: grossly normal external Musculoskeletal: no joint tenderness, no swelling Extremities: normal pulses, no calf tenderness, no clubbing, no cyanosis, no edema Skin: no bruising, no jaundice, no rash Neurological: alert, No focal deficit laboratory and microbiology Laboratory Tests 06/03/24 05:04 06/01/24 05:55 Test 06/01/24 05:55 Range/Units Serum Glucose 181 H 74-106 mg/dL Problem List 1. COVID positive Monitor , COVID trial medications 2. Acute respiratory failure Monitor, albuterol inhaler 3. PNA Monitor, IV abx 4. Hyponatremia Monitor, daily labs 5. Diabetes type 2 uncontrolled Monitor, insulin ss 6. ETOH abuse Monitor 7. History of hypertension Monitor, medications 8. History of colorectal cancer on chemo Monitor 9. History of colon resection Monitor Assessment/Plan Subjective: Patient is awake and alert. Objective: Patient was admitted for acute hypoxic respiratory failure related to COVID pneumonia. He has a history of colorectal cancer and is currently undergoing chemotherapy, making him immunocompromised. The patient was started on Remdesivir. Leukocytosis was noted, and IV antibiotics were initiated due to concern for a possible secondary bacterial pneumonia. Plan: Continue IV antibiotics. Vancomycin was discontinued; the patient remains on Rocephin. Complete the Remdesivir course. Continue the albuterol inhaler as needed for shortness of breath. Continue COVID trial medications. Dietary Evaluation Review Comments: Encoruage and monitor PO intake to meet 75% of his needs. Offer Glucerna BID as tolerated Expected Outcomes/Goals: Gradual wt loss, controlled DM Plan discussed with: Patient, Other JEFE CHOU NP Jun 04, 2024 09:03
--- NOTE | 2024-06-04 19:31 | DVHPN2 ---
Progress Note - Dictate Date Seen: Jun 04, 2024 Medical Necessity Reason Pt with a Central, PICC or Fol: No Subjective Patient seen and examined at bedside. Remains on supplemental oxygen Overnight events reviewed. vital signs Vital Sign Date Time Temp Pulse Resp B/P (MAP) Pulse Ox O2 Delivery O2 Flow Rate FiO2 06/04/24 17:00 97.5 68 22 131/84 (100) 94 97.5 06/04/24 13:51 Oxymizer 4.0 06/04/24 13:51 N/A Total Intake and Output 06/03/24 06/03/24 06/04/24 15:00 23:00 07:00 Intake Total 300 ml 1200 ml 400 ml Output Total 590 ml 600 ml Balance 300 ml 610 ml -200 ml medications Current Medications Medications Dose Ordered Sig/Neil Route Start Time Stop Time Status Last Admin Dose Admin Ceftriaxone Sodium 50 ml @ 100 mls/hr DAILY@09 IV 06/01/24 09:00 06/04/24 09:50 100 MLS/HR Albuterol 90 mcg TID IN 05/31/24 14:00 06/04/24 13:50 90 MCG Acetaminophen/ Hydrocodone Bitart 1 tab Q4HP PRN PO 05/31/24 13:45 Ondansetron HCl 4 mg Q4HP PRN IV 05/31/24 13:45 Acetaminophen 650 mg Q6HP PRN PO 05/31/24 13:45 06/01/24 06:45 650 MG Diagnostic Test (Pha) 1 strip ACHS 05/31/24 17:00 06/04/24 17:30 1 STRIP Dextrose 50 ml UD PRN IV 05/31/24 13:45 Vancomycin HCl 250 ml @ 250 mls/hr Q1H IV 05/31/24 14:30 05/31/24 16:29 Cancel Methylprednisolone Sodium Succinate 40 mg Q8HR IV 05/31/24 22:00 06/04/24 17:30 40 MG Ascorbic Acid 500 mg DAILY PO 06/02/24 10:15 06/04/24 09:51 500 MG Zinc Sulfate 220 mg DAILY PO 06/02/24 10:15 06/04/24 09:50 220 MG Famotidine 20 mg DAILY IV 06/02/24 10:15 06/04/24 09:51 20 MG Cholecalciferol 1,000 unit DAILY PO 06/02/24 10:15 06/04/24 09:51 1,000 UNIT Insulin Human Regular HS AR 06/02/24 22:00 06/03/24 22:36 4 UNITS Insulin Human Regular AC SC 06/02/24 11:30 06/04/24 18:18 3 UNITS Insulin Glargine 10 units DAILY@1000 SC 06/02/24 10:00 06/04/24 12:24 10 UNITS objective Gen.: Patient lying in bed in no apparent distress. On supplemental oxygen. Head: Normocephalic, atraumatic. Eyes: EOMI/PERRLA. Ears: Normal hearing. Normal anatomy. Neck/trachea: Trachea midline, supple. Nose: Normal external anatomy. Mouth: Moist mucous membranes. Chest: Decreased air entry bilaterally. No wheezing or rhonchi. Cardiovascular: Positive S1, positive S2. Regular rate and rhythm. Abdomen: Positive bowel sounds in all 4 quadrants. Soft, non-tender, non- distended. : Deferred. Rectal: Deferred. Skin: Warm, dry. Intact. Extremities: 2+ radial pulses bilaterally. No lower extremity edema. Neuro: Awake, alert, oriented x3. No gross motor or sensory deficits. Cranial nerves II through XII intact. Gait not assessed. laboratory and microbiology Laboratory Tests 06/03/24 05:04 06/01/24 05:55 Test 06/01/24 05:55 Range/Units Serum Glucose 181 H 74-106 mg/dL Assessment/Plan Impression: Acute hypoxic respiratory failure Dependence on supplemental oxygen COVID-19 Hyperglycemia Colorectal cancer, on chemotherapy Obesity Events: Remains on supplemental oxygen, on 3 LPM Oxymizer Taper O2 as tolerated Continue bronchodilators/Albuterol HFA Continue steroids - Solu-Medrol 40 mg q.8 hours Continue antibiotics Incentive spirometry Labs and imaging reviewed. Rest of plan as noted below. Plan: Supplemental oxygen Titrate to keep O2 sats above 92%. CT angio reveals scattered ground-glass attenuation, partial consolidation of both lungs, likely multifocal pneumonia. Continue bronchodilators Continue antibiotics Continue IV steroids Received Remdesivir Monitor renal function. Monitor electrolytes. Supplement as necessary. Monitor ins and outs. Diet and lifestyle modifications for weight reduction Obesity complicates all care DVT prophylaxis. Prognosis: Guarded given patient's multiple co-morbidities. Rest of plan per hospitalist and other consultants. Thank you, JAGJIT Prado, for allowing me to participate in this patient's care. Further recommendations will depend on the patient's clinical course. Please do not hesitate to contact me if you have any questions or concerns. This medical document was created using an electronic medical record system with [employer] dictation system. Although these documentations are being carefully reviewed, there may still be some phonetic and typographical changes. The errors are purely typographical, due to imperfection on the software program, and do not reflect any compromise in the patient's medical care. Dietary Evaluation Review Comments: Encoruage and monitor PO intake to meet 75% of his needs. Offer Glucerna BID as tolerated Expected Outcomes/Goals: Gradual wt loss, controlled DM Plan discussed with: Patient, Other (RN Mark) RAGHAV LECHUGA MD Jun 04, 2024 19:31
[2024-06-05] VITALS (12 sets, daily range): BP systolic 112–144; BP diastolic 72–83; PULSE 52–90; RESP 16–36; TEMP 97.6–98.7; O2SAT 91–97
--- NOTE | 2024-06-05 13:28 | DVHPN2 ---
Progress Note - Dictate Date Seen: Jun 05, 2024 Medical Necessity Reason Pt with a Central, PICC or Fol: No vital signs Vital Sign Date Time Temp Pulse Resp B/P (MAP) Pulse Ox O2 Delivery O2 Flow Rate FiO2 06/05/24 10:00 94 Oxymizer 4 N/A 06/05/24 09:05 98.7 52 18 138/81 (100) 98.7 Total Intake and Output 06/04/24 06/04/24 06/05/24 15:00 23:00 07:00 Intake Total 1057 ml 300 ml Balance 1057 ml 300 ml medications Current Medications Medications Dose Ordered Sig/Neil Route Start Time Stop Time Status Last Admin Dose Admin Ceftriaxone Sodium 50 ml @ 100 mls/hr DAILY@09 IV 06/01/24 09:00 06/05/24 10:43 100 MLS/HR Albuterol 90 mcg TID IN 05/31/24 14:00 06/05/24 07:58 90 MCG Acetaminophen/ Hydrocodone Bitart 1 tab Q4HP PRN PO 05/31/24 13:45 Ondansetron HCl 4 mg Q4HP PRN IV 05/31/24 13:45 Acetaminophen 650 mg Q6HP PRN PO 05/31/24 13:45 06/01/24 06:45 650 MG Diagnostic Test (Pha) 1 strip ACHS 05/31/24 17:00 06/05/24 10:51 1 STRIP Dextrose 50 ml UD PRN IV 05/31/24 13:45 Vancomycin HCl 250 ml @ 250 mls/hr Q1H IV 05/31/24 14:30 05/31/24 16:29 Cancel Methylprednisolone Sodium Succinate 40 mg Q8HR IV 05/31/24 22:00 06/05/24 06:32 40 MG Ascorbic Acid 500 mg DAILY PO 06/02/24 10:15 06/05/24 10:43 500 MG Zinc Sulfate 220 mg DAILY PO 06/02/24 10:15 06/05/24 10:43 220 MG Famotidine 20 mg DAILY IV 06/02/24 10:15 06/05/24 10:43 20 MG Cholecalciferol 1,000 unit DAILY PO 06/02/24 10:15 06/05/24 10:43 1,000 UNIT Insulin Human Regular HS SC 06/02/24 22:00 06/04/24 21:16 4 UNITS Insulin Human Regular AC SC 06/02/24 11:30 06/05/24 11:00 12 UNITS Insulin Glargine 10 units DAILY@1000 SC 06/02/24 10:00 06/05/24 10:58 10 UNITS objective General Appearance: alert, no distress HEENT: EOMI, PERRLA, normal external inspect of ears, no icterus, no nasal drainage Neck: no carotid bruit, no jugular venous distention (JVD), no lymphadenopathy Chest: normal thorax Respiratory: clear to auscultation, normal air movement Cardiovascular: regular rate and rhythm, no diastolic murmur, no jugular venous distention (JVD), no rub, no systolic murmur Abdominal: soft, no hepatomegaly, no mass, no splenomegaly, no tenderness Genitourinary: grossly normal external Musculoskeletal: no joint tenderness, no swelling Extremities: normal pulses, no calf tenderness, no clubbing, no cyanosis, no edema Skin: no bruising, no jaundice, no rash Neurological: alert, No focal deficit laboratory and microbiology Laboratory Tests 06/03/24 05:04 06/01/24 05:55 Test 06/01/24 05:55 Range/Units Serum Glucose 181 H 74-106 mg/dL Problem List 1. COVID positive Monitor , COVID trial medications 2. Acute respiratory failure Monitor, albuterol inhaler 3. PNA Monitor, IV abx 4. Hyponatremia Monitor, daily labs 5. Diabetes type 2 uncontrolled Monitor, insulin ss 6. ETOH abuse Monitor 7. History of hypertension Monitor, medications 8. History of colorectal cancer on chemo Monitor 9. History of colon resection Monitor Assessment/Plan Subjective Patient is awake and alert. Objective Patient was admitted for acute hypoxic respiratory failure and COVID-pneumonia. Patient is immunocompromise. Patient has a history of colorectal cancer. Currently on chemotherapy. Patient started on IV antibiotics for leukocytosis and concern for possible secondary bacterial infection. Plan Continue current treatment. Wean down O2 to 2 L nasal cannula. Keep SpO2 above 92%. Continue incentive spirometer. Continue COVID trial medications. Continue IV Rocephin. enrollment services dean consult to arrange for home O2. DC planning home for tomorrow. Dietary Evaluation Review Comments: Encoruage and monitor PO intake to meet 75% of his needs. Offer Glucerna BID as tolerated Expected Outcomes/Goals: Gradual wt loss, controlled DM Plan discussed with: Patient, Other KRAFT,JEFE M [employer] Jun 05, 2024 13:27
[2024-06-05 14:20] LABS: Basophils # (auto) 0 10 ^3/uL (0-0.2); Basophils % (auto) 0.1 % (0.0-2.0); Eosinophils # (auto) 0 10 ^3/uL (0-0.8); Hematocrit 47.5 % (41.0-53.0); Hemoglobin 15.8 g/dL (13.5-17.5); Lymphocytes # (auto) 0.4 10 ^3/uL (0.4-5.4); Lymphocytes % (auto) 3.8 % (10.0-50.0); Mean Corpuscular Hemoglobin 32.2 pg (28.0-32.0); Mean Corpuscular Hgb Conc. 33.2 g/dL (32.0-36.0); Mean Corpuscular Volume 97.1 fL (80.0-100.0); Monocytes # (auto) 1.2 10 ^3/uL (0-1.3); Monocytes % (auto) 11.2 % (0.0-12.0); Neutrophils # (auto) 8.8 10 ^3/uL (1.6-8.6); Neutrophils % (auto) 84.9 % (37.0-80.0); Nucleated Red Blood Cells % 0.1 %; Platelet Count (auto) 180 10^3/uL (140-450); Red Blood Cells 4.89 10^6/uL (4.5-5.90); White Blood Cell 10.4 10^3/uL (4.4-10.8)
[2024-06-05 14:30] LABS: Red Cell Distribution Width 20.4 % (11.8-14.3)
[2024-06-05 14:58] LABS: Potassium 4.9 mmol/L (3.5-5.1); Sodium 137 mmol/L (136-145)
[2024-06-05 15:02] LABS: Anion Gap 11 (5-15); Carbon Dioxide 17 mmol/L (20-31); Chloride 109 mmol/L (98-107)
[2024-06-05 15:03] LABS: BUN/Creatinine Ratio 28.1 (10.0-20.0)
[2024-06-05 15:04] LABS: Blood Urea Nitrogen 25 mg/dL (9-23); Glucose 361 mg/dL (74-106); Magnesium 1.4 mg/dL (1.6-2.6)
[2024-06-05 15:05] LABS: Phosphorus 2.4 mg/dL (2.4-5.1)
--- NOTE | 2024-06-05 20:41 | DVHPN2 ---
Progress Note - Dictate Date Seen: Jun 05, 2024 Medical Necessity Reason Pt with a Central, PICC or Fol: No Subjective Patient seen and examined at bedside. Currently breathing on room air Overnight events reviewed. vital signs Vital Sign Date Time Temp Pulse Resp B/P (MAP) Pulse Ox O2 Delivery O2 Flow Rate FiO2 06/05/24 17:21 98.3 90 17 119/75 (90) 91 98.3 06/05/24 10:00 Oxymizer 4 N/A Total Intake and Output 06/04/24 06/04/24 06/05/24 15:00 23:00 07:00 Intake Total 1057 ml 300 ml Balance 1057 ml 300 ml medications Current Medications Medications Dose Ordered Sig/Neil Route Start Time Stop Time Status Last Admin Dose Admin Ceftriaxone Sodium 50 ml @ 100 mls/hr DAILY@09 IV 06/01/24 09:00 06/05/24 10:43 100 MLS/HR Albuterol 90 mcg TID IN 05/31/24 14:00 06/05/24 14:30 90 MCG Acetaminophen/ Hydrocodone Bitart 1 tab Q4HP PRN PO 05/31/24 13:45 Ondansetron HCl 4 mg Q4HP PRN IV 05/31/24 13:45 Acetaminophen 650 mg Q6HP PRN PO 05/31/24 13:45 06/01/24 06:45 650 MG Diagnostic Test (Pha) 1 strip ACHS 05/31/24 17:00 06/05/24 17:53 1 STRIP Dextrose 50 ml UD PRN IV 05/31/24 13:45 Vancomycin HCl 250 ml @ 250 mls/hr Q1H IV 05/31/24 14:30 05/31/24 16:29 Cancel Methylprednisolone Sodium Succinate 40 mg Q8HR IV 05/31/24 22:00 06/05/24 14:38 40 MG Ascorbic Acid 500 mg DAILY PO 06/02/24 10:15 06/05/24 10:43 500 MG Zinc Sulfate 220 mg DAILY PO 06/02/24 10:15 06/05/24 10:43 220 MG Famotidine 20 mg DAILY IV 06/02/24 10:15 06/05/24 10:43 20 MG Cholecalciferol 1,000 unit DAILY PO 06/02/24 10:15 06/05/24 10:43 1,000 UNIT Insulin Human Regular HS SC 06/02/24 22:00 06/04/24 21:16 4 UNITS Insulin Human Regular AC SC 06/02/24 11:30 06/05/24 17:54 9 UNITS Insulin Glargine 10 units DAILY@1000 SC 06/02/24 10:00 06/05/24 10:58 10 UNITS objective Gen.: Patient lying in bed in no apparent distress. On room air. Head: Normocephalic, atraumatic. Eyes: EOMI/PERRLA. Ears: Normal hearing. Normal anatomy. Neck/trachea: Trachea midline, supple. Nose: Normal external anatomy. Mouth: Moist mucous membranes. Chest: Decreased air entry bilaterally. No wheezing or rhonchi. Cardiovascular: Positive S1, positive S2. Regular rate and rhythm. Abdomen: Positive bowel sounds in all 4 quadrants. Soft, non-tender, non- distended. : Deferred. Rectal: Deferred. Skin: Warm, dry. Intact. Extremities: 2+ radial pulses bilaterally. No lower extremity edema. Neuro: Awake, alert, oriented x3. No gross motor or sensory deficits. Cranial nerves II through XII intact. Gait not assessed. laboratory and microbiology Laboratory Tests 06/05/24 13:50 Test 06/05/24 13:50 Range/Units Serum Glucose 361 #H 74-106 mg/dL Assessment/Plan Impression: Acute hypoxic respiratory failure Dependence on supplemental oxygen COVID-19 Hyperglycemia Colorectal cancer, on chemotherapy Obesity Events: Breathing comfortably on room air. Supplemental oxygen PRN Improved O2 requirements Continue bronchodilators/Albuterol HFA Continue steroids - Solu-Medrol 40 mg q.8 hours Continue antibiotics Incentive spirometry Patient is stable for discharge from the pulmonary standpoint. Labs and imaging reviewed. Rest of plan as noted below. Plan: Supplemental oxygen PRN Titrate to keep O2 sats above 92%. CT angio reveals scattered ground-glass attenuation, partial consolidation of both lungs, likely multifocal pneumonia. Continue bronchodilators Continue antibiotics Continue IV steroids Received Remdesivir Monitor renal function. Monitor electrolytes. Supplement as necessary. Monitor ins and outs. Diet and lifestyle modifications for weight reduction Obesity complicates all care DVT prophylaxis. Prognosis: Guarded given patient's multiple co-morbidities. Rest of plan per hospitalist and other consultants. Thank you, JAGJIT Prado, for allowing me to participate in this patient's care. Further recommendations will depend on the patient's clinical course. Please do not hesitate to contact me if you have any questions or concerns. This medical document was created using an electronic medical record system with [employer] dictation system. Although these documentations are being carefully reviewed, there may still be some phonetic and typographical changes. The errors are purely typographical, due to imperfection on the software program, and do not reflect any compromise in the patient's medical care. Dietary Evaluation Review Comments: Encoruage and monitor PO intake to meet 75% of his needs. Offer Glucerna BID as tolerated Expected Outcomes/Goals: Gradual wt loss, controlled DM Plan discussed with: Patient, Other (MELVA Canas) RAGHAV LECHUGA MD Jun 05, 2024 20:41
[2024-06-06] VITALS (9 sets, daily range): BP systolic 112–144; BP diastolic 73–84; PULSE 48–84; RESP 16–18; TEMP 97.1–98.1; O2SAT 91–96
[2024-06-06] MEDS ORDERED: ALBU108A5 IN (12:49)
[2024-06-06] MEDS ORDERED: DOXY100C79 PO (12:49)
--- NOTE | 2024-06-06 12:51 | DVHDS2 ---
Discharge Summary Date of Admission May 31, 2024 at 13:42 Date of Discharge: Jun 06, 2024 Labs/Diagnostic Data: Laboratory Results Test 06/06/24 11:02 06/05/24 13:50 06/02/24 22:11 06/01/24 05:55 POC Glucose 210 mg/dl (70-106) White Blood Count 10.4 10^3/uL (4.4-10.8) Red Blood Count 4.89 10^6/uL (4.5-5.90) Hemoglobin 15.8 g/dL (13.5-17.5) Hematocrit 47.5 % (41.0-53.0) Mean Corpuscular Volume 97.1 fL (80.0-100.0) Mean Corpuscular Hemoglobin 32.2 pg (28.0-32.0) Mean Corpuscular Hemoglobin Concent 33.2 g/dL (32.0-36.0) Red Cell Distribution Width 20.4 % (11.8-14.3) Platelet Count 180 10^3/uL (140-450) Mean Platelet Volume 8.1 fL (6.9-10.8) Neutrophils (%) (Auto) 84.9 % (37.0-80.0) Lymphocytes (%) (Auto) 3.8 % (10.0-50.0) Monocytes (%) (Auto) 11.2 % (0.0-12.0) Eosinophils (%) (Auto) 0.0 % (0.0-7.0) Basophils (%) (Auto) 0.1 % (0.0-2.0) Neutrophils # (Auto) 8.8 10 ^3/uL (1.6-8.6) Lymphocytes # (Auto) 0.4 10 ^3/uL (0.4-5.4) Monocytes # (Auto) 1.2 10 ^3/uL (0-1.3) Eosinophils # (Auto) 0 10 ^3/uL (0-0.8) Basophils # (Auto) 0 10 ^3/uL (0-0.2) Nucleated Red Blood Cells 0.1 % Sodium Level 137 mmol/L (136-145) Potassium Level 4.9 mmol/L (3.5-5.1) Chloride Level 109 mmol/L (98-107) Carbon Dioxide Level 17 mmol/L (20-31) Anion Gap 11 (5-15) Blood Urea Nitrogen 25 mg/dL (9-23) Creatinine 0.89 mg/dL (0.700-1.30) Glomerular Filtration Rate Calc 102 mL/min (>90) BUN/Creatinine Ratio 28.1 (10.0-20.0) Serum Glucose 361 mg/dL (74-106) Calcium Level 8.0 mg/dL (8.7-10.4) Phosphorus Level 2.4 mg/dL (2.4-5.1) Magnesium Level 1.4 mg/dL (1.6-2.6) Vancomycin Level Trough 13.4 ug/mL (5-10) Total Bilirubin 0.7 mg/dL (0.2-1.0) Aspartate Amino Transferase (AST) 38 U/L (13-40) Alanine Aminotransferase (ALT) 30 U/L (7-40) Alkaline Phosphatase 117 U/L (46-116) Total Protein 6.6 g/dL (5.7-8.2) Albumin 3.6 g/dL (3.2-4.8) Test 05/31/24 11:15 05/31/24 10:41 05/31/24 10:20 05/31/24 10:13 Troponin I High Sensitivity 8 ng/L (</=54) Blood Gas Specimen Type Arterial Blood Gas Sample Site Right radial Blood Gas Patient Temperature 37.0 Arterial Blood Date Drawn [id number] Arterial Blood pH 7.436 (7.350-7.450) Arterial Blood Partial Pressure CO2 28.5 mmHg (35.0-48.0) Arterial Blood Partial Pressure O2 54.6 mmHg (83.0-108.0) Arterial Blood HCO3 18.7 mmol/L (21.0-28.0) Arterial Blood Oxygen Saturation 86.8 % (94.0-98.0) Arterial Blood Base Excess -3.8 mmol/L (-2.0-3.0) Arterial Blood Oxyhemoglobin 85.5 % (94.0-98.0) Arterial Blood Carboxyhemoglobin 1.0 % (0.5-1.5) Arterial Blood Methemoglobin 0.5 % (0.0-1.5) Levi Test Yes Blood Gas Total Hemoglobin 16.10 g/dL (13.5-17.5) Blood Gas Liter Flow 5.00 Blood Gas Modality Nasal cannula FiO2 % 40.0 Blood Gas Critical Value Read Back Yes Blood Gas Notified Whom sohail Palomares md Blood Gas Notified Time [id number] Blood Gas Notified By Prothrombin Time 13.0 sec (9.3-11.8) Prothrombin Time INR 1.25 (0.9-1.15) Activated Partial Thromboplast Time 32.3 SEC (24.5-34.5) D-Dimer, Quantitative 1.44 mg/L FEU (0.0-0.49) Hemoglobin A1c 9.2 % A1C (<5.7) Lactic Acid Level 1.9 mmol/L (0.4-2.0) B-Type Natriuretic Peptide 3.62 pg/mL (0-100) Influenza Type A Antigen Negative (Negative) Influenza Type B Antigen Negative (Negative) SARS-CoV-2 Antigen (Rapid) Positive (NEGATIVE) Other Laboratory Tests 06/05/24 13:50 Brief Hx & Hospital Course: Patient was admitted on May 31, 2024 for acute hypoxic respiratory failure related to COVID-19 pneumonia. Patient was treated with remdesivir for COVID. Patient was also given COVID trial medications. Patient was also treated with antibiotics for possible secondary bacterial infection. Patient has a history of colorectal cancer and is currently on chemotherapy. Patient was on 4 L Oxymizer. Patient was able to wean down to 2 L nasal cannula. Oxygen was arranged for home and patient will follow-up with her PCP in 1 week. The patient received proper medical treatment and medications. Vital signs, Imaging and Laboratory Work was monitored daily. All consults recommendations were followed as provided. There were no complaints or new complaints upon discharge, all questions and concerns were answered. Patient was advised to return to the ER or call 911 if any headaches, dizziness, shortness of breath, chest pain, bleeding, fevers, or worsening of medical condition. Patient/Family was counseled about treatment plan, medications, possible side effects, patient verbalized understanding. All questions were answered to the best of my ability. The patient symptoms improved and they are okay to be DC. Condition at Discharge: Stable Final Diagnosis/Problems List COVID positive Acute respiratory failure PNA Hyponatremia Diabetes type 2 uncontrolled ETOH abuse History of hypertension History of colorectal cancer on chemo History of colon resection Discharge Disposition: Home Discharge Statement: "Patient was advised to return to the ER or call 911 if any headaches, dizziness, shortness of breath, chest pain, abdominal pain, bleeding, fevers, or worsening of medical condition. Patient was counseled about treatment plan, medications, possible side effects, patientverbalized understanding. All questions were answered to the best of my ability. This discharge took greater then 30 minutes in planning, reviewing documentation, counseling the patient, and discussing with other team members." ASSESSMENT ASSESSMENT Assessment JEFE CHOU NP Jun 06, 2024 12:51
--- NOTE | 2024-06-06 13:24 | DVH ---
CHEST RADIOGRAPH Indication: re-eval Technique: Single frontal view of the chest was obtained COMPARISON: XY CHEST PORTABLE on DOS: 05/31/24 FINDINGS: Lines and Tubes: Right chest port in satisfactory position. Lungs: Patchy bilateral airspace disease. Pleura: No effusion. No pneumothorax. Cardiomediastinal contours: Unremarkable Bones: Unremarkable IMPRESSION: Patchy bilateral airspace disease, unchanged.
[2024-06-06] MEDS: MAGNESIUM SULFATE 1GM/100ML 100 ML IV SCH (13:26)
--- NOTE | 2024-06-06 23:28 | DVHPN2 ---
Progress Note - Dictate Date Seen: Jun 06, 2024 Medical Necessity Reason Pt with a Central, PICC or Fol: No Subjective Patient seen and examined at bedside. Currently on supplemental oxygen Overnight events reviewed. vital signs Vital Sign Date Time Temp Pulse Resp B/P (MAP) Pulse Ox O2 Delivery O2 Flow Rate FiO2 06/06/24 17:10 97.3 79 16 137/84 (101) 91 97.3 06/06/24 09:50 2.0 28 06/06/24 09:44 Nasal Cannula* Total Intake and Output 06/05/24 06/05/24 06/06/24 15:00 23:00 07:00 Intake Total 50 ml 900 ml 650 ml Output Total 350 ml Balance 50 ml 900 ml 300 ml medications Current Medications Medications Dose Ordered Sig/Neil Route Start Time Stop Time Status Last Admin Dose Admin Vancomycin HCl 250 ml @ 250 mls/hr Q1H IV 05/31/24 14:30 05/31/24 16:29 Cancel objective Gen.: Patient lying in bed in no apparent distress. On supplemental oxygen. Head: Normocephalic, atraumatic. Eyes: EOMI/PERRLA. Ears: Normal hearing. Normal anatomy. Neck/trachea: Trachea midline, supple. Nose: Normal external anatomy. Mouth: Moist mucous membranes. Chest: Decreased air entry bilaterally. No wheezing or rhonchi. Cardiovascular: Positive S1, positive S2. Regular rate and rhythm. Abdomen: Positive bowel sounds in all 4 quadrants. Soft, non-tender, non- distended. : Deferred. Rectal: Deferred. Skin: Warm, dry. Intact. Extremities: 2+ radial pulses bilaterally. No lower extremity edema. Neuro: Awake, alert, oriented x3. No gross motor or sensory deficits. Cranial nerves II through XII intact. Gait not assessed. laboratory and microbiology Laboratory Tests 06/05/24 13:50 Test 06/05/24 13:50 Range/Units Serum Glucose 361 #H 74-106 mg/dL Assessment/Plan Impression: Acute hypoxic respiratory failure Dependence on supplemental oxygen COVID-19 Hyperglycemia Colorectal cancer, on chemotherapy Obesity Events: Currently on supplemental oxygen at 2 LPM NC Taper O2 as tolerated Awaiting for oxygen delivery. Continue bronchodilators/Albuterol HFA Continue steroids - Solu-Medrol 40 mg q.8 hours Continue antibiotics Incentive spirometry Patient is stable for discharge from the pulmonary standpoint. Labs and imaging reviewed. Rest of plan as noted below. Plan: Supplemental oxygen Titrate to keep O2 sats above 92%. CT angio reveals scattered ground-glass attenuation, partial consolidation of both lungs, likely multifocal pneumonia. Continue bronchodilators Continue antibiotics Continue IV steroids Received Remdesivir Monitor renal function. Monitor electrolytes. Supplement as necessary. Monitor ins and outs. Diet and lifestyle modifications for weight reduction Obesity complicates all care DVT prophylaxis. Prognosis: Guarded given patient's multiple co-morbidities. Rest of plan per hospitalist and other consultants. Thank you, JAGJIT Prado, for allowing me to participate in this patient's care. Further recommendations will depend on the patient's clinical course. Please do not hesitate to contact me if you have any questions or concerns. This medical document was created using an electronic medical record system with [employer] dictation system. Although these documentations are being carefully reviewed, there may still be some phonetic and typographical changes. The errors are purely typographical, due to imperfection on the software program, and do not reflect any compromise in the patient's medical care. Dietary Evaluation Review Comments: Encoruage and monitor PO intake to meet 75% of his needs. Offer Glucerna BID as tolerated Expected Outcomes/Goals: Gradual wt loss, controlled DM Plan discussed with: Patient, Other (MELVA Canas) RAGHAV LECHUGA MD Jun 06, 2024 23:28
== END 2024-06-06 17:50 | disposition home or self-care (01) | DRG 137 ==
LOC: ER 10:01 → OVERFLOW 13:42 → CENTRAL 20:05
PROVIDERS: ADMIT Nurse Practitioner Acute Care; ATTEND Nurse Practitioner
PROC: XW033E5 Introduction of Remdesivir Anti-infective into Peripheral Vein, Percutaneous Approach, New Technology Group 5 (ICD-10-PCS; principal; 2024-05-31)
DX: U07.1 COVID-19 (principal); J96.01 Acute respiratory failure with hypoxia; J12.82 Pneumonia due to coronavirus disease 2019; E87.1 Hypo-osmolality and hyponatremia; C19 Malignant neoplasm of rectosigmoid junction; D72.829 Elevated white blood cell count, unspecified; Z99.81 Dependence on supplemental oxygen; E11.65 Type 2 diabetes mellitus with hyperglycemia; I10 Essential (primary) hypertension; F10.10 Alcohol abuse, uncomplicated; E66.9 Obesity, unspecified; Z68.34 Body mass index [BMI] 34.0-34.9, adult; Z90.49 Acquired absence of other specified parts of digestive tract; Z85.048 Personal history of other malignant neoplasm of rectum, rectosigmoid junction, and anus; Z83.3 Family history of diabetes mellitus; Z82.49 Family history of ischemic heart disease and other diseases of the circulatory system; Z80.42 Family history of malignant neoplasm of prostate; Z80.0 Family history of malignant neoplasm of digestive organs
CPT/HCPCS: 36415; 36600; 71045; 71275; 80048; 80053; 80202; 82565; 82805; 82962; 83036; 83605; 83735; 83880; 84100; 84484; 85025; 85379; 85610; 85730; 87040; 87426; 87804; 93005; 94640; 96361; 96365; 99291; G0378; J1100; J1642; J1815; J2543; J3490